=== PATIENT | male | born 1955 | race African-American/Black ===

== ENCOUNTER 2016-09-29 13:52 | Inpatient (IN) | payer OTHER ==
[~2016-09-29] VITALS: Ht 167.6 cm; Wt 87.6 kg
[2016-09-29] VITALS (7 sets, daily range): BP systolic 139–188; BP diastolic 70–126; PULSE 69–113; RESP 18–26; TEMP 97.5–98.1; O2SAT 96–99
[~2016-09-29 13:52] MED LIST: PRED20 PO; ROBA750T3 PO; Z.0.NO CURRENT MEDS
[2016-09-29] MEDS ORDERED: SODIUM CHLORIDE 0.9% FLUSH 10 ML FLUSH IVF PRN (14:15)
[2016-09-29] MEDS ORDERED: methylPREDNISolone SOD SUCC 125 MG/2 ML VIAL IVP ONE (14:15)
--- NOTE | 2016-09-29 14:20 | PD ---
HPI Chief Complaint: Respiratory Distress Time Seen by Provider: 14:09 Travel History International Travel<30 days: No Contact w/Intl Traveler<30days: No Traveled to known affect area: No History of Present Illness HPI 61-year-old male with history of smoking, presents to the ER 1 month history of coughing with grayish phlegm, shortness of breath intermittently, dyspnea on exertion. He denies any chest pains, fevers, or other symptoms. He states that he had quit smoking a week ago. Modifying Factors: None Associated Signs & Symptoms: Coughing, shortness of breath, dyspnea on exertion worsening in the past few days Risk Factors: History of smoking PFSH Past Medical History Hypertension: Yes Past Surgical History Genitourinary Surgery: Yes (SCROTAL CYST REMOVED) Social History Alcohol Use: Yes (BEER DAILY) Tobacco Use: Yes Allergies-Medications (Allergen,Severity, Reaction): Coded Allergies: Keflex (Verified Allergy, Severe, ITCHING, 06/30/11) Motrin (Verified Allergy, Severe, VOMITING, 06/30/11) Reported Meds & Prescriptions Reported Meds & Active Scripts Active Robaxin-750 (Methocarbamol) 750 Mg Tab 1 Tab PO QIDPRN FOR PAIN Deltasone (Prednisone) 20 Mg Tab 1 Tab PO DAILY Reported No Current Meds (Miscellaneous Medication) Misc Review of Systems Except as stated in HPI: all other systems reviewed are Neg Physical Exam Narrative GENERAL: Well-developed elderly after Haitian male patient currently in mild respiratory distress. Awake and oriented 3. SKIN: Focused skin assessment warm/dry. HEAD: Atraumatic. Normocephalic. EYES: Pupils equal and round. No scleral icterus. No injection or drainage. ENT: No nasal bleeding or discharge. Mucous membranes pink and moist. NECK: Trachea midline. No JVD. CARDIOVASCULAR: Regular rate and rhythm. No murmur appreciated. RESPIRATORY: No accessory muscle use. With wheezing throughout. Breath sounds equal bilaterally. GASTROINTESTINAL: Abdomen soft, non-tender, nondistended. Hepatic and splenic margins not palpable. MUSCULOSKELETAL: No obvious deformities. No clubbing. No cyanosis. No edema. NEUROLOGICAL: Awake and alert. No obvious cranial nerve deficits. Motor grossly within normal limits. Normal speech. PSYCHIATRIC: Appropriate mood and affect; insight and judgment normal. Data Data Last Documented VS Vital Signs Date Time Temp Pulse Resp B/P Pulse Ox O2 Delivery O2 Flow Rate FiO2 09/29/16 16:02 96 2 09/29/16 16:02 20 Nasal Cannula 09/29/16 13:57 98.1 113 188/126 Orders Complete Blood Count With Diff (09/29/16 14:09) Comprehensive Metabolic Panel (09/29/16 14:09) B-Type Natriuretic Peptide (09/29/16 14:09) Iv Access Insert/Monitor (09/29/16 14:09) Electrocardiogram (09/29/16 14:09) Ecg Monitoring (09/29/16 14:09) Oximetry (09/29/16 14:09) Oxygen Administration (09/29/16 14:09) Chest, Single Ap (09/29/16 14:09) Sodium Chloride 0.9% Flush (Ns Flush) (09/29/16 14:15) Methylprednisolone So Succ Inj (Solumedr (09/29/16 14:15) Albuterol-Ipratropium Neb (Duoneb Neb) (09/29/16 14:15) Furosemide Inj (Lasix Inj) (09/29/16 17:00) Labs Laboratory Tests Test 09/29/16 14:15 White Blood Count 10.1 TH/MM3 Red Blood Count 5.16 MIL/MM3 Hemoglobin 15.8 GM/DL Hematocrit 46.7 % Mean Corpuscular Volume 90.6 FL Mean Corpuscular Hemoglobin 30.6 PG Mean Corpuscular Hemoglobin 33.8 % Concent Red Cell Distribution Width 15.1 % Platelet Count 188 TH/MM3 Mean Platelet Volume 10.7 FL Neutrophils (%) (Auto) 59.4 % Lymphocytes (%) (Auto) 22.4 % Monocytes (%) (Auto) 5.2 % Eosinophils (%) (Auto) 11.9 % Basophils (%) (Auto) 1.1 % Neutrophils # (Auto) 6.0 TH/MM3 Lymphocytes # (Auto) 2.3 TH/MM3 Monocytes # (Auto) 0.5 TH/MM3 Eosinophils # (Auto) 1.2 TH/MM3 Basophils # (Auto) 0.1 TH/MM3 CBC Comment DIFF FINAL Differential Comment Sodium Level 140 MEQ/L Potassium Level 4.1 MEQ/L Chloride Level 107 MEQ/L Carbon Dioxide Level 24.3 MEQ/L Anion Gap 9 MEQ/L Blood Urea Nitrogen 11 MG/DL Creatinine 1.18 MG/DL Estimat Glomerular Filtration 76 ML/MIN Rate Random Glucose 120 MG/DL Calcium Level 9.7 MG/DL Total Bilirubin 1.3 MG/DL Aspartate Amino Transf 67 U/L (AST/SGOT) Alanine Aminotransferase 149 U/L (ALT/SGPT) Alkaline Phosphatase 89 U/L B-Type Natriuretic Peptide 865 PG/ML Total Protein 7.5 GM/DL Albumin 3.6 GM/DL MDM Medical Decision Making Medical Screen Exam Complete: Yes Emergency Medical Condition: Yes Medical Record Reviewed: Yes Interpretation(s) Laboratory Tests Test 09/29/16 14:15 Eosinophils (%) (Auto) 11.9 % (0.0-4.0) Eosinophils # (Auto) 1.2 TH/MM3 (0-0.4) Estimat Glomerular Filtration 76 ML/MIN (>89) Rate Random Glucose 120 MG/DL (74-106) Total Bilirubin 1.3 MG/DL (0.2-1.0) Aspartate Amino Transf 67 U/L (15-37) (AST/SGOT) Alanine Aminotransferase 149 U/L (12-78) (ALT/SGPT) B-Type Natriuretic Peptide 865 PG/ML (0-100) Last 24 hours Impressions Chest X-Ray 09/29/16 1409 Signed Impressions: Service Date/Time: Thursday, September 29, 2016 14:16 - CONCLUSION: 1. Cardiomegaly with trace positive fluid balance. Kwan Stone MD Differential Diagnosis Coughing, shortness of breath, dyspnea on exertionbronchitis versus COPD versus pneumonia Narrative Course Patient was initially given Solu-Medrol and DuoNeb's with improvement symptoms. His chest x-ray is concerning for underlying pulmonary edema and BNP is elevated as well. Lasix was also added to the medics. At this point, my plan would be to admit the patient for further evaluation and treatment considering he has had no history of either CHF or COPD in the past. Case has been discussed with Dr. Green for admission. Diagnosis Primary Impression: CHF (congestive heart failure) Additional Impression: Bronchitis Admitting Information Admitting Physician Requests: Admit Emma Byrd MD Sep 29, 2016 14:20
[2016-09-29] MEDS: RESP: ALBUTEROL 2.5 MG/IPRATROPIUM 0.5 MG NEB (SCH) INH (14:33)
[2016-09-29 14:38] LABS: BASOPHIL # 0.1 TH/MM3 (0-0.2); BASOPHIL % 1.1 % (0.0-2.0); EOSINOPHIL # 1.2 TH/MM3 (0-0.4); EOSINOPHIL % 11.9 % (0.0-4.0); HEMATOCRIT 46.7 % (39.0-51.0); HEMO FLAGS DIFF FINAL; LYMPH % 22.4 % (9.0-44.0); LYMPHOCYTE # 2.3 TH/MM3 (1.0-4.8); MEAN CELL VOLUME 90.6 FL (80.0-100.0); MEAN CORPUSCULAR HEMOGLOBIN 30.6 PG (27.0-34.0); MEAN CORPUSCULAR HGB CONC 33.8 % (32.0-36.0); MONO % 5.2 % (0.0-8.0); NEUT % 59.4 % (16.0-70.0); PLATELET COUNT 188 TH/MM3 (150-450); RED BLOOD COUNT 5.16 MIL/MM3 (4.50-5.90); RED CELL DISTRIBUTION WIDTH 15.1 % (11.6-17.2); WHITE BLOOD COUNT 10.1 TH/MM3 (4.0-11.0)
[2016-09-29 14:43] LABS: ALT (GPT) 149 U/L (12-78); ANION GAP 9 MEQ/L (5-15); AST (GOT) 67 U/L (15-37); BICARBONATE 24.3 MEQ/L (21.0-32.0); BLOOD UREA NITROGEN 11 MG/DL (7-18); CHLORIDE 107 MEQ/L (98-107); GLOMERULAR FILTRATION RATE 76 ML/MIN (>89); POTASSIUM 4.1 MEQ/L (3.5-5.1); SODIUM (NA) 140 MEQ/L (136-145)
[2016-09-29 14:45] LABS: ALKALINE PHOSPHATASE 89 U/L (45-117); TOTAL BILIRUBIN ADULT 1.3 MG/DL (0.2-1.0)
--- NOTE | 2016-09-29 15:28 | RADRPT ---
EXAM DATE/TIME: 09/29/2016 14:16 [facility] COMPARISON: No previous studies available for comparison. INDICATIONS : Shortness of breath. MEDICAL HISTORY : Hypertension. SURGICAL HISTORY : None. ENCOUNTER: Initial ACUITY: 2 months PAIN SCORE: 0/10 LOCATION: Bilateral chest FINDINGS: Cardiac silhouette is enlarged. Mild diffuse interstitial prominence. No significant focal pleural or parenchymal opacities. Bony thorax is intact. CONCLUSION: 1. Cardiomegaly with trace positive fluid balance. Kwan Stone MD on September 29, 2016 at 15:00 Board Certified Radiologist. This report was verified electronically.
[2016-09-29] MEDS ORDERED: FUROSEMIDE 40 MG/4 ML VIAL IV PUSH ONE (17:00)
[2016-09-29] MEDS ORDERED: ACETAMINOPHEN 325 MG TAB PO PRN (17:15)
[2016-09-29] MEDS ORDERED: NALOXONE HCL 0.4 MG/ML AMP IV PRN (17:15)
[2016-09-29] MEDS ORDERED: ONDANSETRON HCL 4 MG/2 ML VIAL IVP PRN (17:15)
[2016-09-29] MEDS ORDERED: RESP: ALBUTEROL 2.5 MG/IPRATROPIUM 0.5 MG NEB (PRN) NEB (17:15)
[2016-09-29] MEDS ORDERED: SODIUM CHLORIDE 0.9% FLUSH 10 ML FLUSH IV FLUSH PRN (17:15)
[2016-09-29] MEDS ORDERED: TEMAZEPAM 15 MG CAP PO PRN (17:15)
--- NOTE | 2016-09-29 17:48 | HHI.HP ---
[facility] Service [facility] Primary Care Physician [facility] Admission Diagnosis new onset CHF/COPD Diagnoses: (1) CHF (congestive heart failure) Chief Complaint: Worsening shortness of breath for past month Productive cough Travel History International Travel<30 Days: No Contact w/Intl Traveler <30 Da: No Traveled to Known Affected Are: No History of Present Illness Written by Ebonie Pedraza, acting as scribe for Dr. Green on 09/29/16 at 17:32. Mr. Hoover is a 61-year-old male patient with a known history of hypertension, tobacco abuse, cocaine use, and noncompliance who presented to the ED with complaints of worsening shortness of breath and productive cough x 1 month now. Patient states that his shortness of breath has been worsening over the past week with inability to walk no more than 20 feet without becoming short of breath and having to sit down. Patient [facility] with little to no improvement with continued use. He states he was adjusting a fan blade at home this am, became significantly short of breath, dizzy, diaphoretic and developed nausea and one bout of yellow emesis. Denies any chest pain at that time but did recognize his heart racing. Denies any recent lower leg edema. Patient states that over the past few days he has been waking up several times per night with orthopnea. Supposedly patient stopped smoking 1 week ago with a 20 year smoking history. States he has been diagnosed with hypertension but has not been compliant with medications for over a year now due to expense. Does admit to daily cocaine use, with last use last night. Patient also admits to daily alcohol use, up to 1 pint or liquor or 6 pack of alcohol per day. Last drink was three days ago, states he has not felt like drinking due to dyspnea. Patient is seen by the [facility] in the outpatient setting. He states he has not been compliant with prescribed medication for over 1 year now due to expense. Denies any recent fever, chills, chest pain, abdominal pain, diarrhea, hematochezia or dysuria. Review of Systems Constitutional: COMPLAINS OF: Dizziness Respiratory: COMPLAINS OF: Cough, Wheezing, Sputum production, Shortness of breath Cardiovascular: COMPLAINS OF: Dyspnea on Exertion, Orthopnea Gastrointestinal: COMPLAINS OF: Nausea, Vomiting Musculoskeletal: COMPLAINS OF: Joint pain Except as stated in HPI: all other systems reviewed are Neg Past Family Social History Past Medical History Hypertension Cocaine abuse Past Surgical History Scrotal cyst removal. Reported Medications Active Robaxin-750 (Methocarbamol) 750 Mg Tab 1 Tab PO QIDPRN FOR PAIN Deltasone (Prednisone) 20 Mg Tab 1 Tab PO DAILY Reported No Current Meds (Miscellaneous Medication) Misc Allergies: Coded Allergies: Keflex (Verified Allergy, Severe, ITCHING, 06/30/11) Motrin (Verified Allergy, Severe, VOMITING, 06/30/11) Active Ordered Medications Current Medications Medications (Trade) Dose Ordered Sig/Yaneth Route Start Time Stop Time Status Last Admin (NS Flush) 2 ml UNSCH PRN IVF 09/29/16 14:15 (NS Flush) 2 ml UNSCH PRN IV FLUSH 09/29/16 17:15 (NS Flush) 2 ml BID IV FLUSH 09/29/16 21:00 (Lasix Inj) 40 mg BID@09,18 IVP 09/29/16 18:00 (KCl) 20 meq BID PO 09/29/16 21:00 (Tylenol) 650 mg Q4H PRN PO 09/29/16 17:15 (Zofran Inj) 4 mg Q6H PRN IVP 09/29/16 17:15 (Restoril) 15 mg HS PRN PO 09/29/16 17:15 (Narcan Inj) 0.4 mg UNSCH PRN IV 09/29/16 17:15 (Vasotec Inj) 1.25 mg Q6H PRN IV PUSH 09/29/16 17:15 (Coreg) 3.125 mg Q12HR PO 09/29/16 21:00 Family History Maternal medical history significant for diabetes. Dad of DE at age 72. Denies any significant family medical history of cancer. Social History Patient admits to smoking over forty years half pack per day. Does admit to daily alcohol use, states he can easily drink a plan of alcohol in one night or a six pack of beer. Patient states last beer was one week ago, states he has not been feeling well. Does admit to daily cocaine use, last use was last night. Physical Exam Vital Signs Vital Signs Date Time Temp Pulse Resp B/P Pulse Ox O2 Delivery O2 Flow Rate FiO2 09/29/16 17:43 69 20 168/105 98 Nasal Cannula 2 09/29/16 16:02 96 2 09/29/16 16:02 20 96 Nasal Cannula 2 09/29/16 14:36 98 Nasal Cannula 2.00 09/29/16 13:57 98.1 113 26 188/126 96 Physical Exam GENERAL: Well-nourished, well-developed patient, sitting in bed on oxygen, short of breath with SKIN: No rashes, ecchymoses or lesions. Warm and dry. HEENT: Atraumatic. Normocephalic. Pupils equal round and reactive. Extraocular motions intact. No scleral icterus. No injection or drainage. Nose without bleeding. Airway patent. NECK: Trachea midline. No JVD or lymphadenopathy. Supple. CARDIOVASCULAR: Tachycardia.No murmur appreciated. RESPIRATORY: Right posterior lower lobe expiratory wheeze. Breath sounds equal bilaterally. No wheezes, rales, or rhonchi. GASTROINTESTINAL: Abdomen soft, non-tender, nondistended. No guarding. MUSCULOSKELETAL: Extremities without clubbing, cyanosis, or edema. No joint tenderness, effusion, or edema noted. NEUROLOGICAL: Awake and alert. Cranial nerves II through XII intact. Motor and sensory grossly within normal limits. Five out of 5 muscle strength in all muscle groups. Normal speech. Laboratory Laboratory Tests Test 09/29/16 14:15 White Blood Count 10.1 Red Blood Count 5.16 Hemoglobin 15.8 Hematocrit 46.7 Mean Corpuscular Volume 90.6 Mean Corpuscular Hemoglobin 30.6 Mean Corpuscular Hemoglobin 33.8 Concent Red Cell Distribution Width 15.1 Platelet Count 188 Mean Platelet Volume 10.7 Neutrophils (%) (Auto) 59.4 Lymphocytes (%) (Auto) 22.4 Monocytes (%) (Auto) 5.2 Eosinophils (%) (Auto) 11.9 Basophils (%) (Auto) 1.1 Neutrophils # (Auto) 6.0 Lymphocytes # (Auto) 2.3 Monocytes # (Auto) 0.5 Eosinophils # (Auto) 1.2 Basophils # (Auto) 0.1 CBC Comment DIFF FINAL Differential Comment Sodium Level 140 Potassium Level 4.1 Chloride Level 107 Carbon Dioxide Level 24.3 Anion Gap 9 Blood Urea Nitrogen 11 Creatinine 1.18 Estimat Glomerular Filtration 76 Rate Random Glucose 120 Calcium Level 9.7 Total Bilirubin 1.3 Aspartate Amino Transf 67 (AST/SGOT) Alanine Aminotransferase 149 (ALT/SGPT) Alkaline Phosphatase 89 B-Type Natriuretic Peptide 865 Total Protein 7.5 Albumin 3.6 Result Diagram: 09/29/16 1415 09/29/16 1415 Imaging Last Impressions Chest X-Ray 09/29/16 1409 Signed Impressions: Service Date/Time: Tuesday, September 29, 2016 14:16 - CONCLUSION: 1. Cardiomegaly with trace positive fluid balance. Kwan Stone MD Assessment and Plan Problem List: (1) New onset of congestive heart failure ICD Code: I50.9 Status: Acute (2) Essential hypertension, malignant ICD Code: I10 Status: Acute (3) Alcohol abuse ICD Code: F10.10 Status: Acute (4) Transaminitis ICD Code: R74.0 Status: Acute Assessment and Plan Mr. Hoover is a 61-year-old male patient with a known history of hypertension, tobacco abuse, cocaine use, and noncompliance who presented to the ED with complaints of worsening shortness of breath and productive cough x 1 month now. Congestive heart failure, acute vs chronic: No previous history of CHF or prior ECHO. - Given Lasix 40 mg IV x 1 in ED. Start on Lasix 40 mg PO BID. - Monitor for hypokalemia, start on KCL 20 meq PO BID. - Obtain 2-D ECHO, Lipid profile. Follow. - BNP on presentation, 865. - Serial troponin. Pending. Trend. - Chest x-ray reviewed, cardiomegaly with trace positive fluid balance. - EKG reviewed, sinus tachycardia with left atrial enlargement. -Consult Cardiology Uncontrolled hypertension, chronic - Patient noncompliant with prescribed outpatient hypertensives. - Start Coreg 3.125 mg PO Q12hr. - Vasotec 1.25 mg IV q6h PRN with parameters. - Continuous cardiac telemetry. Monitor. Elevated LFTs: Likely chronic due to daily alcohol use - AST 67 and ALT 149 on presentation. -Check Hepatitis profile - CIWA protocol started. Monitor withdrawal symptoms. Bronchitis: Likely chronic due to smoking - No fever, likely viral in nature. - Solumedrol 125 mg IV x 1 in ED. - Duonebs PRN wheezing. DVT Prophylaxis: SCDs/TEDs. This note was transcribed by bel Pedraza. I, Dr. Rainer Green personally performed the history, physical exam, and medical decision making; and confirmed the accuracy of the information in the transcribed note. Authenticated by Dr. Rainer Green on 09/29/16 at 17:32. Code Status Full code Discussed Condition With Patient, ED physician Ebonie Pedraza Sep 29, 2016 17:48 Rainer Green MD Sep 29, 2016 17:49
[2016-09-29] MEDS: FUROSEMIDE 40 MG/4 ML VIAL IVP SCH (18:00)
[2016-09-29] MEDS ORDERED: LORazepam 2 MG TAB PO PRN (18:45)
[2016-09-29] MEDS ORDERED: LORazepam 1 MG TAB PO PRN (18:45)
[2016-09-29] MEDS ORDERED: LORazepam 2 MG/ML VIAL IV PUSH PRN ×4 (18:45)
[2016-09-29] MEDS ORDERED: FLUMAZENIL 0.5 MG/5 ML VIAL IV PUSH PRN (18:45)
[2016-09-29] MEDS: ENALAPRILAT 1.25 MG/ML VIAL IV PUSH PRN (18:46)
[2016-09-29] MEDS ORDERED: LISI40TA PO (20:47)
[2016-09-29] MEDS ORDERED: SERT-132 PO (20:47)
[2016-09-29] MEDS ORDERED: TRAZ50TA12 PO (20:47)
[2016-09-29] MEDS: SODIUM CHLORIDE 0.9% FLUSH 10 ML FLUSH IV FLUSH SCH (22:00)
[2016-09-29] MEDS: POTASSIUM CHLORIDE 20 MEQ CONTROLLED RELEASE TAB PO SCH (22:00)
[2016-09-29] MEDS: ENOXAPARIN SODIUM 80 MG/0.8 ML SYRINGE SQ SCH (22:01)
[2016-09-29] MEDS: CARVEDILOL 3.125 MG TAB PO SCH (22:01)
[2016-09-29 22:17] LABS: HDL CHOLESTEROL 41.5 MG/DL (40.0-60.0); LDL CHOLESTEROL 177 MG/DL (0-99)
[2016-09-30] VITALS (9 sets, daily range): BP systolic 123–145; BP diastolic 76–103; PULSE 69–100; RESP 18–20; TEMP 97.6–99; O2SAT 95–99
[2016-09-30] MEDS ORDERED: ASPIRIN 325 MG TAB PO ONE (00:45)
[2016-09-30] MEDS: FOLIC ACID 1 MG TAB PO SCH (08:32)
[2016-09-30] MEDS: FUROSEMIDE 40 MG/4 ML VIAL IVP SCH (08:32)
[2016-09-30] MEDS: CARVEDILOL 3.125 MG TAB PO SCH (08:32)
[2016-09-30] MEDS: POTASSIUM CHLORIDE 20 MEQ CONTROLLED RELEASE TAB PO SCH ×2 (08:33→22:28)
[2016-09-30] MEDS: MULTIVITAMINS/MINERALS THERAPEUTIC TAB PO SCH (08:33)
[2016-09-30] MEDS: THIAMINE HCL 100 MG TAB PO SCH (08:34)
[2016-09-30] MEDS: SODIUM CHLORIDE 0.9% FLUSH 10 ML FLUSH IV FLUSH SCH ×2 (08:34→21:00)
[2016-09-30 09:32] LABS: BICARBONATE 21.1 MEQ/L (21.0-32.0); POTASSIUM 4.1 MEQ/L (3.5-5.1)
--- NOTE | 2016-09-30 09:53 | HHI.PR ---
Subjective Remarks Follow-up for shortness of breath and likely new onset CHF. The patient reports his shortness of breath is significantly improved overnight. He reports good urine output overnight. He still has some orthopnea. He states that shortness of breath is not at rest but when he exerts himself. He continues to complain of chronic dry coughing. Takes lisinopril. No fevers or chills. The patient reports that he uses cocaine and Lortab off the street for chronic shoulder and knee pain. He has seen orthopedics at the [place] for these symptoms in the past. He states that his PCP at the [place] thinks that he is an addict. He verbalizes understanding that these substances specifically cocaine are adverse to his health, but he intends to keep using them because they control his pain. Objective Vitals Vital Signs Date Time Temp Pulse Resp B/P Pulse Ox O2 Delivery O2 Flow Rate FiO2 09/30/16 08:30 98 Nasal Cannula 2.00 09/30/16 07:14 97.6 84 20 133/77 99 09/30/16 04:24 98.4 69 18 140/79 97 09/30/16 01:17 98.8 88 18 131/76 98 09/29/16 23:00 95 09/29/16 21:48 97.5 94 20 139/79 96 09/29/16 19:11 109 18 150/70 99 Nasal Cannula 2 09/29/16 18:50 105 22 150/81 96 2 09/29/16 17:43 69 20 168/105 98 Nasal Cannula 2 09/29/16 16:02 96 2 09/29/16 16:02 20 96 Nasal Cannula 2 09/29/16 14:36 98 Nasal Cannula 2.00 09/29/16 13:57 98.1 113 26 188/126 96 I/O 09/29/16 09/29/16 09/29/16 09/30/16 09/30/16 09/30/16 07:00 15:00 23:00 07:00 15:00 23:00 Intake Total 500 ml 500 ml Output Total 550 ml Balance 500 ml -50 ml Intake Oral 500 ml 500 ml Output Urine Total 550 ml Result Diagram: 09/29/16 1415 09/29/16 1415 Imaging Last Impressions Chest X-Ray 09/29/16 1409 Signed Impressions: Service Date/Time: Thursday, September 29, 2016 14:16 - CONCLUSION: 1. Cardiomegaly with trace positive fluid balance. Kwan Stone MD Objective Remarks GENERAL: Well-developed well-nourished. In no acute distress. SKIN: Warm and dry. No lesions noted. HEENT: Normocephalic. Pupils equal and round. Mucous membranes pink and moist. CARDIOVASCULAR: Regular rate and rhythm. No murmur appreciated. RESPIRATORY: No accessory muscle use. Clear to auscultation. Breath sounds equal bilaterally. GASTROINTESTINAL: Abdomen soft, non-tender, nondistended. Bowel sounds x4. MUSCULOSKELETAL: No obvious deformities. No clubbing or cyanosis. Trace edema. NEUROLOGICAL: Awake and alert. No focal neurological deficits. Moves upper and lower extremities spontaneously. Normal speech. PSYCHIATRIC: Slightly anxious mood and affect; insight and judgment normal. A/P Problem List: (1) New onset of congestive heart failure ICD Code: I50.9 Status: Acute (2) Essential hypertension, malignant ICD Code: I10 Status: Acute (3) Alcohol abuse ICD Code: F10.10 Status: Acute (4) Transaminitis ICD Code: R74.0 Status: Acute Assessment and Plan Mr. Hoover is a 61-year-old male patient with a known history of hypertension, tobacco abuse, cocaine use, and noncompliance who presented to the ED with complaints of worsening shortness of breath and productive cough x 1 month now. Suspected congestive heart failure with acute exacerbation: No previous history of CHF or prior ECHO. Presented with CHOPRA, orthopnea, lower extremity edema. Reviewed: BNP 865. Chest x-ray with cardiomegaly and edema. Lipid profile with high LDL, transaminitis. Troponins as below. - Diuresing with IV Lasix. Monitor intake and output. - Obtain 2-D ECHO - Cardiology consulted. - Hold off on statin for now with transaminitis. Uncontrolled hypertension, chronic - Patient noncompliant with prescribed outpatient hypertensives. - Started Coreg 3.125 mg PO Q12hr, caution with cocaine use. - Change lisinopril to losartan with chronic cough - Vasotec 1.25 mg IV q6h PRN with parameters. - Continuous cardiac telemetry. Monitor. Elevated troponins: No specific chest pain. Possibly secondary to CHF or cocaine use. R/O NSTEMI. EKG reviewed with sinus tachycardia, LVH, nonspecific T wave changes. -Trending cardiac enzymes -Cardiology consulted -On full dose Lovenox for now -Aspirin -Check UDS Transaminitis: Likely chronic due to daily alcohol use Reviewed: Bilirubin 1.3, AST 67 and ALT 149. - Check Hepatitis profile Alcohol abuse: Chronic. - CIWA protocol with thiamine replacement. - Monitor withdrawal symptoms. Chronic cough: Chest x-ray as above. Possibly chronic bronchitis. Cough no longer productive with diuresis, possible cardiac asthma. Afebrile with no leukocytosis. Likely chronic due to smoking. Received Solu-Medrol IV in the ED. - Duonebs PRN wheezing. - Supplemental O2 as needed - Change lisinopril to losartan. Depression: Chronic, stable. -Continue home sertraline and trazodone. Chronic knee and shoulder pain: Patient agrees that he needs long-term management for this and agrees that he does not need any acute care. -Recommend continued orthopedic follow-up as outpatient as well as pain management Polysubstance abuse: With alcohol, tobacco, and cocaine. -Counseled extensively on cessation, although patient expresses no desire to quit DVT Prophylaxis: SCDs/TEDs. GI prophylaxis: Pepcid Discharge Planning With new onset CHF and possible NSTEMI, will admit to inpatient. To Gleason Sep 30, 2016 09:53
[2016-09-30 10:24] LABS: AMPHETAMINE, URINE NEG (NEG); BARBITURATES, URINE NEG (NEG); COCAINE, URINE POS (NEG)
[2016-09-30] MEDS: FAMOTIDINE 20 MG TAB PO SCH ×2 (10:38→22:27)
[2016-09-30] MEDS: LOSARTAN 25 MG TAB PO SCH (10:38)
[2016-09-30] MEDS: ENOXAPARIN SODIUM 80 MG/0.8 ML SYRINGE SQ SCH ×2 (10:39→22:27)
--- NOTE | 2016-09-30 11:12 | ECHRPT ---
Indication: Syncope and collapse CONCLUSIONS Mildly dilated left ventricle. Wall thickness is measured at the upper limits of normal. The left ve ntricular systolic function is severely reduced with an estimated ejection fraction in the range of 25-30%. Th ere is global left ventricular dysfunction. Mild thickening of the mitral valve leaflets. Mild mitral valve regurgitation. There is trace tricuspid valve regurgitation. Pulmonary arterial systolic pressure could not be est imated due to an insufficient tricuspid valve regurgitation doppler jet for measurement. BP: 96 / 76 HR: 70 Rhythm: Other MEASUREMENTS (Male / Female) Normal Values Technical Quality:Good 2D ECHO LV Diastolic Diameter PLAX 6.2 cm 4.2 - 5.9 / 3.9 - 5.3 cm LV Systolic Diameter PLAX 5.4 cm IVS Diastolic Thickness 0.9 cm 0.6 - 1.0 / 0.6 - 0.9 cm LVPW Diastolic Thickness 0.9 cm 0.6 - 1.0 / 0.6 - 0.9 cm LV Relative Wall Thickness 0.3 RV Internal Dim ED PLAX 2.0 cm LVOT Diameter 2.0 cm M-MODE Aortic Root Diameter MM 3.1 cm LA Systolic Diameter MM 3.6 cm LA Ao Ratio MM 1.2 AV Cusp Separation MM 1.9 cm DOPPLER AV Peak Velocity 164.0 cm/s AV Peak Gradient 10.8 mmHg LVOT Peak Velocity 115.0 cm/s LVOT Peak Gradient 5.3 mmHg AV Area Cont Eq pk 2.2 cm MR Peak Velocity 507.0 cm/s MR Peak Gradient 102.8 mmHg LV E' Lateral Velocity 5.4 cm/s LV E' Septal Velocity 4.9 cm/s TR Peak Velocity 197.3 cm/s TR Peak Gradient 15.6 mmHg PV Peak Velocity 99.1 cm/s PV Peak Gradient 3.9 mmHg FINDINGS Left Ventricle Mildly dilated left ventricle. Wall thickness is measured at the upper limits of normal. The left ve ntricular systolic function is severely reduced with an estimated ejection fraction in the range of 25-30%. Th ere is global left ventricular dysfunction. Right Atrium The right atrial size is upper limits of normal. Mitral Valve Mild thickening of the mitral valve leaflets. Mild mitral valve regurgitation. No mitral valve steno sis. Tricuspid Valve There is trace tricuspid valve regurgitation. Pulmonary arterial systolic pressure could not be est imated due to an insufficient tricuspid valve regurgitation doppler jet for measurement. Rj Leon MD, FACC (Electronically Signed) Final Date:30 September 2016 11:11
--- NOTE | 2016-09-30 12:16 | MB ---
cc: ERIN REDDY DATE OF CONSULTATION: 09/30/2016 REASON FOR CONSULTATION: Mr. Hoover 61-year-old white male with a history of hypertension and smoking, cocaine use and noncompliance with medical care. He presented with progressive history of shortness of breath and cough for the last month. He has had shortness of breath on minimal exertion. [facility] with no improvement of his symptoms. He also has had dizziness, diaphoresis, nausea and vomiting. He has not had any chest pain. He states stopped smoking 1 week ago. He uses cocaine daily. He also has history of heavy drinking. He was prescribed medications over 1 year ago and he has not been compliant. PAST MEDICAL HISTORY Positive for hypertension. Cocaine use History of scrotal cyst removal. MEDICATIONS 1. Robaxin. 2. Deltasone. ALLERGIES KEFLEX MOTRIN SOCIAL HISTORY The patient quit smoking 1 week ago. He drinks alcohol heavily. He uses cocaine daily. FAMILY HISTORY: Family history is positive for heart disease in his father. REVIEW OF SYSTEMS The review of systems is otherwise negative. PHYSICAL EXAMINATION VITAL SIGNS: Blood pressure was 133/77, pulse 84 and regular. HEAD, EYES, EARS, NOSE, AND THROAT: Negative. No bruits. LUNGS: Few bibasilar crackles. HEART: Regular with no murmur with 1/6 systolic murmur. No gallop or rub. No bruits. EXTREMITIES: Extremities with no edema. 2+ Pulses. NEUROLOGICALLY: He is grossly nonfocal. EKG was reviewed and showed sinus tachycardia, short ND of the left atrial enlargement, left ventricle hypertrophy with secondary ST-T changes. LABORATORY DATA Hemoglobin 15.8, potassium 4.1, creatinine 3, troponin 0.81, 0.75 and 0.65, CK 184 and 154, LDL 137, HDL 42. RADIOLOGIC: Echocardiogram showed severe left ventricular dysfunction with an ejection fraction of 25-30% severe global hypokinesis. DIAGNOSIS 1. Acute congestive heart failure, systolic 2. Cardiomyopathy with severe LV systolic dysfunction. 3. Hypertensive. 4. Cocaine abuse. 5. Alcohol abuse. 6. Noncompliance with medical care. PHYSICIAN: Mr. Hoover will continue his therapy for congestive heart failure including IV diuresis. He will continue therapy with beta melchor and ARB. We will obtain an adenosine myocardial perfusion study tomorrow to evaluate for significant ischemia. His cardiomyopathy may be related to habitual cocaine use and also heavy alcohol use. This was discussed with the patient in detail. I will follow him for cardiology during his hospitalization. He was advised to follow up with the [facility] food service attendant after discharge. MD LOCO Liang/biju /11:43 AM /12:06 PM FAUSTINO
--- NOTE | 2016-09-30 14:51 | EKG ---
Date Performed: 09/29/2016 Time Performed: 20:25:13 PTAGE: 61 years EKG: SINUS TACHYCARDIA LEFT ATRIAL ENLARGEMENT LEFT VENTRICULAR HYPERTROPHY AND ST-T CHANGE ABNO RMAL ECG Compared to prior tracing no significant change PREVIOUS TRACING : 09/29/2016 14.27 DOCTOR: Chas Juarez Interpretating Date/Time 09/30/2016 14:50:36
--- NOTE | 2016-09-30 14:51 | EKG ---
Date Performed: 09/29/2016 Time Performed: 14:27:59 PTAGE: 61 years EKG: SINUS TACHYCARDIA WITH SHORT DE INTERVAL LEFT ATRIAL ENLARGEMENT LEFT VENTRICULAR HYPERTROP HY AND ST-T CHANGE ABNORMAL ECG Compared to PREVIOUS TRACING , the sinus rate has increased and T-wave changes are consistent with LV H. PREVIOUS TRACING 06/30/2011 14.01.48 DOCTOR: Chas Juarez Interpretating Date/Time 09/30/2016 14:50:27
--- NOTE | 2016-09-30 14:51 | EKG ---
Date Performed: 09/30/2016 Time Performed: 00:09:04 PTAGE: 61 years EKG: Sinus rhythm LEFT ATRIAL ENLARGEMENT LEFT VENTRICULAR HYPERTROPHY AND ST-T CHANGE ABNORMAL ECG Compared to PREVIOUS TRACING , the sinus rate has slowed. PREVIOUS TRACIN09/29/2016 20.25 DOCTOR: Chas Juarez Interpretating Date/Time 09/30/2016 14:50:49
[2016-09-30] MEDS: ENALAPRILAT 1.25 MG/ML VIAL IV PUSH PRN (17:58)
[2016-09-30] MEDS: FUROSEMIDE 20 MG/2 ML VIAL IV PUSH SCH (17:59)
[2016-09-30] MEDS: traZODone HCL 100 MG TAB PO SCH (22:27)
[2016-09-30] MEDS: CARVEDILOL 6.25 MG TAB PO SCH (22:27)
[2016-10-01] VITALS (8 sets, daily range): BP systolic 112–154; BP diastolic 71–97; PULSE 84–99; RESP 20; TEMP 97.9–99.1; O2SAT 94–97
[2016-10-01] MEDS: CARVEDILOL 6.25 MG TAB PO SCH ×2 (08:49→20:56)
[2016-10-01] MEDS: LOSARTAN 25 MG TAB PO SCH (08:49)
[2016-10-01] MEDS: FOLIC ACID 1 MG TAB PO SCH (08:50)
[2016-10-01] MEDS: MULTIVITAMINS/MINERALS THERAPEUTIC TAB PO SCH (08:50)
[2016-10-01] MEDS: POTASSIUM CHLORIDE 20 MEQ CONTROLLED RELEASE TAB PO SCH ×2 (08:51→20:56)
[2016-10-01] MEDS: SERTRALINE HCL 50 MG TAB PO SCH (08:51)
[2016-10-01] MEDS: SODIUM CHLORIDE 0.9% FLUSH 10 ML FLUSH IV FLUSH SCH ×2 (08:51→20:56)
[2016-10-01] MEDS: FUROSEMIDE 20 MG/2 ML VIAL IV PUSH SCH ×2 (08:51→17:41)
[2016-10-01] MEDS: ASPIRIN 81 MG CHEW TAB CHEW SCH (08:51)
[2016-10-01] MEDS: FAMOTIDINE 20 MG TAB PO SCH ×2 (08:51→20:56)
[2016-10-01] MEDS: THIAMINE HCL 100 MG TAB PO SCH (08:52)
[2016-10-01] MEDS: ENOXAPARIN SODIUM 80 MG/0.8 ML SYRINGE SQ SCH ×2 (08:53→20:56)
[2016-10-01] MEDS ORDERED: REGADENOSON INJ 0.4 MG/5 ML SYR ONE (09:39)
--- NOTE | 2016-10-01 11:17 | HHI.PR ---
Subjective Remarks This is a pleasant 61 y/o Male with Shortness of breath, new onset of CHF, dry cough, The patient reports that he uses cocaine and Lortab off the street for chronic shoulder and knee pain. He has [facility] in the past. He states that his PCP at the [facility] thinks that he is an addict. He verbalizes understanding that these substances specifically cocaine are adverse to his health, but he intends to keep using them because they control his pain. 10/01: Seen in his bedroom in the presence of his and Daughter stable, Cardiology following. No nausea, vomit or diarrhea eating his Lunch Objective Vital Signs Date Time Temp Pulse Resp B/P Pulse Ox O2 Delivery O2 Flow Rate FiO2 10/01/16 08:00 97.9 93 20 112/78 97 10/01/16 07:56 96 Nasal Cannula 1.00 10/01/16 04:00 Nasal Cannula 2.00 10/01/16 04:00 98.0 97 20 126/90 96 10/01/16 00:00 Nasal Cannula 2.00 10/01/16 00:00 98.3 89 20 124/71 94 09/30/16 21:11 Room Air 09/30/16 20:08 93 09/30/16 20:08 98.1 95 19 130/80 95 09/30/16 17:30 Nasal Cannula 2.00 09/30/16 17:00 97.8 100 18 145/103 97 09/30/16 15:08 97.8 88 19 127/80 99 09/30/16 11:43 99.0 89 18 123/77 97 09/30/16 11:34 88 I/O 09/30/16 09/30/16 09/30/16 10/01/16 10/01/16 10/01/16 07:00 15:00 23:00 07:00 15:00 23:00 Intake Total 500 ml 240 ml Output Total 550 ml 340 ml 200 ml Balance -50 ml -100 ml -200 ml Intake Oral 500 ml 240 ml Output Urine Total 550 ml 340 ml 200 ml # Bowel Movements 1 0 Result Diagram: 09/29/16 1415 09/30/16 0826 Imaging Last Impressions Chest X-Ray 09/29/16 1409 Signed Impressions: Service Date/Time: Thursday, September 29, 2016 14:16 - CONCLUSION: 1. Cardiomegaly with trace positive fluid balance. Kwan Stone MD Procedures No procedures. Other Results Laboratory Tests Test 09/29/16 09/29/16 09/30/16 09/30/16 14:15 17:40 00:02 08:26 White Blood Count 10.1 TH/MM3 Red Blood Count 5.16 MIL/MM3 Hemoglobin 15.8 GM/DL Hematocrit 46.7 % Mean Corpuscular Volume 90.6 FL Mean Corpuscular Hemoglobin 30.6 PG Mean Corpuscular Hemoglobin 33.8 % Concent Red Cell Distribution Width 15.1 % Platelet Count 188 TH/MM3 Mean Platelet Volume 10.7 FL Neutrophils (%) (Auto) 59.4 % Lymphocytes (%) (Auto) 22.4 % Monocytes (%) (Auto) 5.2 % Eosinophils (%) (Auto) 11.9 % Basophils (%) (Auto) 1.1 % Neutrophils # (Auto) 6.0 TH/MM3 Lymphocytes # (Auto) 2.3 TH/MM3 Monocytes # (Auto) 0.5 TH/MM3 Eosinophils # (Auto) 1.2 TH/MM3 Basophils # (Auto) 0.1 TH/MM3 CBC Comment DIFF FINAL Differential Comment Total Bilirubin 1.3 MG/DL Aspartate Amino Transf 67 U/L (AST/SGOT) Alanine Aminotransferase 149 U/L (ALT/SGPT) Alkaline Phosphatase 89 U/L B-Type Natriuretic Peptide 865 PG/ML Total Protein 7.5 GM/DL Albumin 3.6 GM/DL Hemoglobin A1c 6.2 % Triglycerides Level 115 MG/DL Cholesterol Level 241 MG/DL LDL Cholesterol 177 MG/DL HDL Cholesterol 41.5 MG/DL Cholesterol/HDL Ratio 5.80 RATIO Hepatitis A IgM Antibody NEGATIVE Hepatitis B Surface Antigen NEGATIVE Hepatitis B Core IgM Antibody NEGATIVE Hepatitis C Antibody NEGATIVE Total Creatine Kinase 154 U/L Sodium Level 140 MEQ/L Potassium Level 4.1 MEQ/L Chloride Level 108 MEQ/L Carbon Dioxide Level 21.1 MEQ/L Anion Gap 11 MEQ/L Blood Urea Nitrogen 20 MG/DL Creatinine 1.31 MG/DL Estimat Glomerular Filtration 67 ML/MIN Rate Random Glucose 120 MG/DL Calcium Level 9.8 MG/DL Troponin I 0.65 NG/ML Test 09/30/16 10:00 Urine Opiates Screen NEG Urine Barbiturates Screen NEG Urine Amphetamines Screen NEG Urine Benzodiazepines Screen NEG Urine Cocaine Screen POS Urine Cannabinoids Screen NEG Objective Remarks GENERAL: Well-developed well-nourished. In no acute distress. SKIN: Warm and dry. No lesions noted. HEENT: Normocephalic. Pupils equal and round. Mucous membranes pink and moist. CARDIOVASCULAR: Regular rate and rhythm. No murmur appreciated. RESPIRATORY: No accessory muscle use. Clear to auscultation. Breath sounds equal bilaterally. GASTROINTESTINAL: Abdomen soft, non-tender, nondistended. Bowel sounds x4. MUSCULOSKELETAL: No obvious deformities. No clubbing or cyanosis. Trace edema. NEUROLOGICAL: Awake and alert. No focal neurological deficits. Moves upper and lower extremities spontaneously. Normal speech. PSYCHIATRIC: Slightly anxious mood and affect; insight and judgment normal. Medications and IVs Current Medications Medications (Trade) Dose Ordered Sig/Yaneth Route Start Time Stop Time Status Last Admin (NS Flush) 2 ml UNSCH PRN IVF 09/29/16 14:15 (NS Flush) 2 ml UNSCH PRN IV FLUSH 09/29/16 17:15 (NS Flush) 2 ml BID IV FLUSH 09/29/16 21:00 10/01/16 08:51 (KCl) 20 meq BID PO 09/29/16 21:00 10/01/16 08:51 (Tylenol) 650 mg Q4H PRN PO 09/29/16 17:15 (Zofran Inj) 4 mg Q6H PRN IVP 09/29/16 17:15 (Restoril) 15 mg HS PRN PO 09/29/16 17:15 (Narcan Inj) 0.4 mg UNSCH PRN IV 09/29/16 17:15 (Vasotec Inj) 1.25 mg Q6H PRN IV PUSH 09/29/16 17:15 09/30/16 17:58 (Folate) 1 mg DAILY PO 09/30/16 09:00 10/05/16 08:59 10/01/16 08:50 (Vitamin B1) 100 mg DAILY PO 09/30/16 09:00 10/01/16 08:52 (Theragran M Tab) 1 tab DAILY PO 09/30/16 09:00 10/05/16 08:59 10/01/16 08:50 (Romazicon Inj) 0.2 mg Q1M PRN IV PUSH 09/29/16 18:45 (Ativan) 1 mg Q4H PRN PO 09/29/16 18:45 (Ativan Inj) 1 mg Q4H PRN IV PUSH 09/29/16 18:45 (Ativan) 2 mg Q2H PRN PO 09/29/16 18:45 (Ativan Inj) 2 mg Q2H PRN IV PUSH 09/29/16 18:45 (Ativan Inj) 2 mg Q1H PRN IV PUSH 09/29/16 18:45 (Ativan Inj) 2 mg Q15M PRN IV PUSH 09/29/16 18:45 (Lovenox Inj) 80 mg Q12H SQ 09/29/16 21:45 10/01/16 08:53 (Pepcid) 20 mg BID PO 09/30/16 09:00 10/01/16 08:51 (Cozaar) 25 mg DAILY PO 09/30/16 09:45 10/01/16 08:49 (Zoloft) 50 mg DAILY PO 10/01/16 09:00 10/01/16 08:51 (Desyrel) 100 mg HS PO 09/30/16 21:00 09/30/16 22:27 (Aspirin Chew) 81 mg DAILY CHEW 10/01/16 09:00 10/01/16 08:51 (Lasix Inj) 20 mg BID@09,18 IV PUSH 09/30/16 18:00 10/01/16 08:51 (Coreg) 6.25 mg Q12HR PO 09/30/16 21:00 10/01/16 08:49 A/P Assessment and Plan Mr. Hoover is a 61-year-old male patient with a known history of hypertension, tobacco abuse, cocaine use, and noncompliance who presented to the ED with complaints of worsening shortness of breath and productive cough x 1 month now. New onset of Congestive Heart failure BNP 865 on admission, CXR Cardiomegaly and Edema, on Diuretics, Echocardiogram, he has Cardiomyopathy, Hypertension, Statins held due to Transaminitis, Cardiology following recommended BB and ARBs, Echocardiogram EF 25-30% with global left ventricular dysfunction, Stress test Dilated Cardiomyopathy, low inferior wall infarct. EF 17%. Cardiology following. Non compliance with medical health. Hypertension better control. - Patient noncompliant with prescribed outpatient hypertensives. - Started Coreg 3.125 mg PO Q12hr, caution with cocaine use. - Change lisinopril to losartan with chronic cough - Vasotec 1.25 mg IV q6h PRN with parameters. - Continuous cardiac telemetry. Monitor. Elevated troponins: No specific chest pain. Possibly secondary to CHF or cocaine use. R/O NSTEMI. EKG reviewed with sinus tachycardia, LVH, nonspecific T wave changes. -Trending cardiac enzymes -Cardiology consulted -On full dose Lovenox for now -Aspirin -Check UDS Transaminitis: Likely chronic due to daily alcohol use Reviewed: Bilirubin 1.3, AST 67 and ALT 149. - Check Hepatitis profile Alcohol abuse: Chronic. - CIWA protocol with thiamine replacement. - Monitor withdrawal symptoms. Chronic cough: Chest x-ray as above. Possibly chronic bronchitis. Cough no longer productive with diuresis, possible cardiac asthma. Afebrile with no leukocytosis. Likely chronic due to smoking. Received Solu-Medrol IV in the ED. - Duonebs PRN wheezing. - Supplemental O2 as needed - Change lisinopril to losartan. Depression: Chronic, stable. -Continue home sertraline and trazodone. Chronic knee and shoulder pain: Patient agrees that he needs long-term management for this and agrees that he does not need any acute care. -Recommend continued orthopedic follow-up as outpatient as well as pain management Polysubstance abuse: With alcohol, tobacco, and cocaine. -Counseled extensively on cessation, although patient expresses no desire to quit DVT Prophylaxis: SCDs/TEDs. GI prophylaxis: Pepcid Discharge Planning awaiting final by Cardiology to Discharge home. Ace Hernandez MD Oct 01, 2016 11:17 GI prophylaxis: Pepcid Discharge Planning awaiting final by Cardiology to Discharge home. Ace Hernandez MD Oct 01, 2016 11:17
--- NOTE | 2016-10-01 12:03 | RADRPT ---
EXAM DATE/TIME: 10/01/2016 09:10 [facility] COMPARISON: No previous studies available for comparison. INDICATIONS : Cardiomyopathy and current smoker. Congestive heart failure. DOSE: 25.8 mCi Tc99m Myoview at stress. 8.3 mCi Tc99m Myoview at rest. 0.4 mg Lexiscan STRESS SYMPTOMS: None. EJECTION FRACTION: 17% MEDICAL HISTORY : Hypertension. SURGICAL HISTORY : Scrota cyst removed. ENCOUNTER: Initial ACUITY: 1 day PAIN SCALE: 2/10 LOCATION: Bilateral chest TECHNIQUE: The patient underwent pharmacologic stress with infusion of prescribed dose. Continuous ECG tracing was monitored during stress. Gated SPECT imaging was performed after stress and conventional SPECT i maging was performed at rest. The examination was performed on a SPECT/CT scanner, both attenuation and non-corrected datasets were reviewed. FINDINGS: DISTRIBUTION: The maximum perfused segment at stress is in the lateral wall. PERFUSION STUDY: The pattern of perfusion at stress shows dilation of the ventricular lumen. Fixed diminished perfusio n to the low inferior wall extending into the apex. There is a single image of approximately 20-30% r edistribution in the inferoseptal wall which is only seen on the short axis views and cannot be verónica borated on the horizontal or vertical long axis views. As such, I feel this is artifactual. GATED STUDY: Diffuse hypokinesis with a markedly diminished ejection fraction. CONCLUSION: 1. Scintigraphic findings suggesting a dilated cardiomyopathy with a low inferior wall infarct extend ing into the apex. 2. No reversibility to suggest ischemia. 3. Severe, global hypokinesis with a markedly reduced ejection fraction of 17%. RISK CATEGORY: High (>3% Annual Mortality Rate) Tao Peña MD on October 01, 2016 at 11:56 Board Certified Radiologist. This report was verified electronically.
--- NOTE | 2016-10-01 15:40 | PD.CARD.PN ---
Subjective Subjective Remarks No CP or SOB, feels better Objective Medications Current Medications Medications (Trade) Dose Ordered Sig/Yaneth Route Start Time Stop Time Status Last Admin (NS Flush) 2 ml UNSCH PRN IVF 09/29/16 14:15 (NS Flush) 2 ml UNSCH PRN IV FLUSH 09/29/16 17:15 (NS Flush) 2 ml BID IV FLUSH 09/29/16 21:00 10/01/16 08:51 (KCl) 20 meq BID PO 09/29/16 21:00 10/01/16 08:51 (Tylenol) 650 mg Q4H PRN PO 09/29/16 17:15 (Zofran Inj) 4 mg Q6H PRN IVP 09/29/16 17:15 (Restoril) 15 mg HS PRN PO 09/29/16 17:15 (Narcan Inj) 0.4 mg UNSCH PRN IV 09/29/16 17:15 (Vasotec Inj) 1.25 mg Q6H PRN IV PUSH 09/29/16 17:15 09/30/16 17:58 (Folate) 1 mg DAILY PO 09/30/16 09:00 10/05/16 08:59 10/01/16 08:50 (Vitamin B1) 100 mg DAILY PO 09/30/16 09:00 10/01/16 08:52 (Theragran M Tab) 1 tab DAILY PO 09/30/16 09:00 10/05/16 08:59 10/01/16 08:50 (Romazicon Inj) 0.2 mg Q1M PRN IV PUSH 09/29/16 18:45 (Ativan) 1 mg Q4H PRN PO 09/29/16 18:45 (Ativan Inj) 1 mg Q4H PRN IV PUSH 09/29/16 18:45 (Ativan) 2 mg Q2H PRN PO 09/29/16 18:45 (Ativan Inj) 2 mg Q2H PRN IV PUSH 09/29/16 18:45 (Ativan Inj) 2 mg Q1H PRN IV PUSH 09/29/16 18:45 (Ativan Inj) 2 mg Q15M PRN IV PUSH 09/29/16 18:45 (Lovenox Inj) 80 mg Q12H SQ 09/29/16 21:45 10/01/16 08:53 (Pepcid) 20 mg BID PO 09/30/16 09:00 10/01/16 08:51 (Cozaar) 25 mg DAILY PO 09/30/16 09:45 10/01/16 08:49 (Zoloft) 50 mg DAILY PO 10/01/16 09:00 10/01/16 08:51 (Desyrel) 100 mg HS PO 09/30/16 21:00 09/30/16 22:27 (Aspirin Chew) 81 mg DAILY CHEW 10/01/16 09:00 10/01/16 08:51 (Lasix Inj) 20 mg BID@09,18 IV PUSH 09/30/16 18:00 10/01/16 08:51 (Coreg) 6.25 mg Q12HR PO 09/30/16 21:00 10/01/16 08:49 Vital Signs / I&O Vital Signs Date Time Temp Pulse Resp B/P Pulse Ox O2 Delivery O2 Flow Rate FiO2 10/01/16 08:00 94 Nasal Cannula 2.00 10/01/16 08:00 97.9 93 20 112/78 97 10/01/16 07:56 96 Nasal Cannula 1.00 10/01/16 04:00 Nasal Cannula 2.00 10/01/16 04:00 98.0 97 20 126/90 96 10/01/16 00:00 Nasal Cannula 2.00 10/01/16 00:00 98.3 89 20 124/71 94 09/30/16 21:11 Room Air 09/30/16 20:08 93 09/30/16 20:08 98.1 95 19 130/80 95 09/30/16 17:30 Nasal Cannula 2.00 09/30/16 17:00 97.8 100 18 145/103 97 I/O 09/30/16 09/30/16 09/30/16 10/01/16 10/01/16 10/01/16 07:00 15:00 23:00 07:00 15:00 23:00 Intake Total 500 ml 240 ml Output Total 550 ml 340 ml 200 ml Balance -50 ml -100 ml -200 ml Intake Oral 500 ml 240 ml Output Urine Total 550 ml 340 ml 200 ml # Bowel Movements 1 0 Physical Exam GENERAL: In NAD SKIN: Warm and dry. HEAD: Normocephalic. EYES: No scleral icterus. No injection or drainage. NECK: Supple, trachea midline. No JVD or lymphadenopathy. CARDIOVASCULAR: Regular rate and rhythm without murmurs, gallops, or rubs. RESPIRATORY: Breath sounds equal bilaterally. No accessory muscle use. GASTROINTESTINAL: Abdomen soft, non-tender, nondistended. MUSCULOSKELETAL: No cyanosis, or edema. Laboratory Laboratory Tests Test 09/29/16 09/29/16 09/30/16 09/30/16 14:15 17:40 00:02 08:26 White Blood Count 10.1 TH/MM3 Red Blood Count 5.16 MIL/MM3 Hemoglobin 15.8 GM/DL Hematocrit 46.7 % Mean Corpuscular Volume 90.6 FL Mean Corpuscular Hemoglobin 30.6 PG Mean Corpuscular Hemoglobin 33.8 % Concent Red Cell Distribution Width 15.1 % Platelet Count 188 TH/MM3 Mean Platelet Volume 10.7 FL Neutrophils (%) (Auto) 59.4 % Lymphocytes (%) (Auto) 22.4 % Monocytes (%) (Auto) 5.2 % Eosinophils (%) (Auto) 11.9 % Basophils (%) (Auto) 1.1 % Neutrophils # (Auto) 6.0 TH/MM3 Lymphocytes # (Auto) 2.3 TH/MM3 Monocytes # (Auto) 0.5 TH/MM3 Eosinophils # (Auto) 1.2 TH/MM3 Basophils # (Auto) 0.1 TH/MM3 CBC Comment DIFF FINAL Differential Comment Total Bilirubin 1.3 MG/DL Aspartate Amino Transf 67 U/L (AST/SGOT) Alanine Aminotransferase 149 U/L (ALT/SGPT) Alkaline Phosphatase 89 U/L B-Type Natriuretic Peptide 865 PG/ML Total Protein 7.5 GM/DL Albumin 3.6 GM/DL Hemoglobin A1c 6.2 % Triglycerides Level 115 MG/DL Cholesterol Level 241 MG/DL LDL Cholesterol 177 MG/DL HDL Cholesterol 41.5 MG/DL Cholesterol/HDL Ratio 5.80 RATIO Hepatitis A IgM Antibody NEGATIVE Hepatitis B Surface Antigen NEGATIVE Hepatitis B Core IgM Antibody NEGATIVE Hepatitis C Antibody NEGATIVE Total Creatine Kinase 154 U/L Sodium Level 140 MEQ/L Potassium Level 4.1 MEQ/L Chloride Level 108 MEQ/L Carbon Dioxide Level 21.1 MEQ/L Anion Gap 11 MEQ/L Blood Urea Nitrogen 20 MG/DL Creatinine 1.31 MG/DL Estimat Glomerular Filtration 67 ML/MIN Rate Random Glucose 120 MG/DL Calcium Level 9.8 MG/DL Troponin I 0.65 NG/ML Test 09/30/16 10:00 Urine Opiates Screen NEG Urine Barbiturates Screen NEG Urine Amphetamines Screen NEG Urine Benzodiazepines Screen NEG Urine Cocaine Screen POS Urine Cannabinoids Screen NEG Imaging Last Impressions Myocardial Perfusion Scan Nuc Med 10/01/16 0000 Signed Impressions: Service Date/Time: Saturday, October 01, 2016 09:10 - CONCLUSION: 1. Scintigraphic findings suggesting a dilated cardiomyopathy with a low inferior wall infarct extending into the apex. 2. No reversibility to suggest ischemia. 3. Severe, global hypokinesis with a markedly reduced ejection fraction of 17%%. RISK CATEGORY: High (>3%% Annual Mortality Rate) Tao Peña MD Chest X-Ray 09/29/16 1409 Signed Impressions: Service Date/Time: Thursday, September 29, 2016 14:16 - CONCLUSION: 1. Cardiomegaly with trace positive fluid balance. Kwan Stone MD Assessment and Plan Problem List: (1) Acute CHF (congestive heart failure) (2) Nonischemic cardiomyopathy (3) Cocaine abuse (4) Essential hypertension, malignant Assessment and Plan Symptoms improving. Continue and titrate tx for CHF. Nuclear stress test c/w nonischemic CM. Increase activity. Counseled again to stop using cocaine. Alina Washington MD Oct 01, 2016 15:40
[2016-10-01] MEDS: traZODone HCL 100 MG TAB PO SCH (20:56)
[2016-10-02] VITALS: BP 101/70; PULSE 88; RESP 20; TEMP 98.4; O2SAT 95
[2016-10-02 04:00] VITALS: BP 108/81; PULSE 92; RESP 20; TEMP 98.4; O2SAT 95
[2016-10-02 08:00] VITALS: BP 114/76; PULSE 70; PULSE 83; RESP 16; TEMP 97.8; O2SAT 100
[2016-10-02] MEDS: CARVEDILOL 6.25 MG TAB PO SCH ×2 (08:30→20:50)
[2016-10-02] MEDS: ASPIRIN 81 MG CHEW TAB CHEW SCH (08:31)
[2016-10-02] MEDS: THIAMINE HCL 100 MG TAB PO SCH (08:31)
[2016-10-02] MEDS: MULTIVITAMINS/MINERALS THERAPEUTIC TAB PO SCH (08:31)
[2016-10-02] MEDS: FOLIC ACID 1 MG TAB PO SCH (08:31)
[2016-10-02] MEDS: POTASSIUM CHLORIDE 20 MEQ CONTROLLED RELEASE TAB PO SCH ×2 (08:31→20:50)
[2016-10-02] MEDS: LOSARTAN 25 MG TAB PO SCH (08:31)
[2016-10-02] MEDS: SERTRALINE HCL 50 MG TAB PO SCH (08:31)
[2016-10-02] MEDS: FAMOTIDINE 20 MG TAB PO SCH ×2 (08:31→20:50)
[2016-10-02] MEDS: FUROSEMIDE 20 MG/2 ML VIAL IV PUSH SCH ×2 (08:33→17:27)
[2016-10-02] MEDS: ENOXAPARIN SODIUM 80 MG/0.8 ML SYRINGE SQ SCH ×2 (09:39→20:50)
[2016-10-02 12:00] VITALS: BP 114/82; PULSE 80; RESP 16; TEMP 97.6; O2SAT 96
[2016-10-02 16:00] VITALS: BP 122/72; PULSE 84; RESP 16; TEMP 97.9; O2SAT 94
--- NOTE | 2016-10-02 16:10 | PD.CARD.PN ---
Subjective Subjective Remarks No CP or SOB, feels fine Objective Medications Current Medications Medications (Trade) Dose Ordered Sig/Yaneth Route Start Time Stop Time Status Last Admin (NS Flush) 2 ml UNSCH PRN IVF 09/29/16 14:15 (NS Flush) 2 ml UNSCH PRN IV FLUSH 09/29/16 17:15 (NS Flush) 2 ml BID IV FLUSH 09/29/16 21:00 10/01/16 20:56 (KCl) 20 meq BID PO 09/29/16 21:00 10/02/16 08:31 (Tylenol) 650 mg Q4H PRN PO 09/29/16 17:15 (Zofran Inj) 4 mg Q6H PRN IVP 09/29/16 17:15 (Restoril) 15 mg HS PRN PO 09/29/16 17:15 (Narcan Inj) 0.4 mg UNSCH PRN IV 09/29/16 17:15 (Vasotec Inj) 1.25 mg Q6H PRN IV PUSH 09/29/16 17:15 09/30/16 17:58 (Folate) 1 mg DAILY PO 09/30/16 09:00 10/05/16 08:59 10/02/16 08:31 (Vitamin B1) 100 mg DAILY PO 09/30/16 09:00 10/02/16 08:31 (Theragran M Tab) 1 tab DAILY PO 09/30/16 09:00 10/05/16 08:59 10/02/16 08:31 (Romazicon Inj) 0.2 mg Q1M PRN IV PUSH 09/29/16 18:45 (Ativan) 1 mg Q4H PRN PO 09/29/16 18:45 (Ativan Inj) 1 mg Q4H PRN IV PUSH 09/29/16 18:45 (Ativan) 2 mg Q2H PRN PO 09/29/16 18:45 (Ativan Inj) 2 mg Q2H PRN IV PUSH 09/29/16 18:45 (Ativan Inj) 2 mg Q1H PRN IV PUSH 09/29/16 18:45 (Ativan Inj) 2 mg Q15M PRN IV PUSH 09/29/16 18:45 (Lovenox Inj) 80 mg Q12H SQ 09/29/16 21:45 10/02/16 09:39 (Pepcid) 20 mg BID PO 09/30/16 09:00 10/02/16 08:31 (Cozaar) 25 mg DAILY PO 09/30/16 09:45 10/02/16 08:31 (Zoloft) 50 mg DAILY PO 10/01/16 09:00 10/02/16 08:31 (Desyrel) 100 mg HS PO 09/30/16 21:00 10/01/16 20:56 (Aspirin Chew) 81 mg DAILY CHEW 10/01/16 09:00 10/02/16 08:31 (Lasix Inj) 20 mg BID@09,18 IV PUSH 09/30/16 18:00 10/02/16 08:33 (Coreg) 12.5 mg Q12HR PO 10/01/16 21:00 10/02/16 08:30 Vital Signs / I&O Vital Signs Date Time Temp Pulse Resp B/P Pulse Ox O2 Delivery O2 Flow Rate FiO2 10/02/16 12:00 97.6 80 16 114/82 96 10/02/16 08:00 100 Room Air 10/02/16 08:00 83 10/02/16 08:00 97.8 70 16 114/76 100 10/02/16 04:00 98.4 92 20 108/81 95 10/02/16 00:00 98.4 88 20 101/70 95 10/01/16 20:05 Nasal Cannula 2.00 10/01/16 20:00 99 10/01/16 20:00 98.3 84 20 136/85 97 10/01/16 18:20 96 Nasal Cannula 1.00 I/O 10/01/16 10/01/16 10/01/16 10/02/16 10/02/16 10/02/16 07:00 15:00 23:00 07:00 15:00 23:00 Intake Total 480 ml 220 ml 220 ml Output Total 200 ml 400 ml 400 ml Balance -200 ml 480 ml -180 ml -180 ml Intake Oral 480 ml 220 ml 220 ml Output Urine Total 200 ml 400 ml 400 ml # Voids 3 # Bowel Movements 0 1 2 2 Physical Exam GENERAL: In NAD SKIN: Warm and dry. HEAD: Normocephalic. EYES: No scleral icterus. No injection or drainage. NECK: Supple, trachea midline. No JVD or lymphadenopathy. CARDIOVASCULAR: Regular rate and rhythm without murmurs, gallops, or rubs. RESPIRATORY: Breath sounds equal bilaterally. No accessory muscle use. GASTROINTESTINAL: Abdomen soft, non-tender, nondistended. MUSCULOSKELETAL: No cyanosis, or edema. Laboratory Laboratory Tests Test 09/29/16 09/29/16 09/30/16 09/30/16 14:15 17:40 00:02 08:26 White Blood Count 10.1 TH/MM3 Red Blood Count 5.16 MIL/MM3 Hemoglobin 15.8 GM/DL Hematocrit 46.7 % Mean Corpuscular Volume 90.6 FL Mean Corpuscular Hemoglobin 30.6 PG Mean Corpuscular Hemoglobin 33.8 % Concent Red Cell Distribution Width 15.1 % Platelet Count 188 TH/MM3 Mean Platelet Volume 10.7 FL Neutrophils (%) (Auto) 59.4 % Lymphocytes (%) (Auto) 22.4 % Monocytes (%) (Auto) 5.2 % Eosinophils (%) (Auto) 11.9 % Basophils (%) (Auto) 1.1 % Neutrophils # (Auto) 6.0 TH/MM3 Lymphocytes # (Auto) 2.3 TH/MM3 Monocytes # (Auto) 0.5 TH/MM3 Eosinophils # (Auto) 1.2 TH/MM3 Basophils # (Auto) 0.1 TH/MM3 CBC Comment DIFF FINAL Differential Comment Total Bilirubin 1.3 MG/DL Aspartate Amino Transf 67 U/L (AST/SGOT) Alanine Aminotransferase 149 U/L (ALT/SGPT) Alkaline Phosphatase 89 U/L B-Type Natriuretic Peptide 865 PG/ML Total Protein 7.5 GM/DL Albumin 3.6 GM/DL Hemoglobin A1c 6.2 % Triglycerides Level 115 MG/DL Cholesterol Level 241 MG/DL LDL Cholesterol 177 MG/DL HDL Cholesterol 41.5 MG/DL Cholesterol/HDL Ratio 5.80 RATIO Hepatitis A IgM Antibody NEGATIVE Hepatitis B Surface Antigen NEGATIVE Hepatitis B Core IgM Antibody NEGATIVE Hepatitis C Antibody NEGATIVE Total Creatine Kinase 154 U/L Sodium Level 140 MEQ/L Potassium Level 4.1 MEQ/L Chloride Level 108 MEQ/L Carbon Dioxide Level 21.1 MEQ/L Anion Gap 11 MEQ/L Blood Urea Nitrogen 20 MG/DL Creatinine 1.31 MG/DL Estimat Glomerular Filtration 67 ML/MIN Rate Random Glucose 120 MG/DL Calcium Level 9.8 MG/DL Troponin I 0.65 NG/ML Test 09/30/16 10:00 Urine Opiates Screen NEG Urine Barbiturates Screen NEG Urine Amphetamines Screen NEG Urine Benzodiazepines Screen NEG Urine Cocaine Screen POS Urine Cannabinoids Screen NEG Imaging Last Impressions Myocardial Perfusion Scan Nuc Med 10/01/16 0000 Signed Impressions: Service Date/Time: Saturday, October 01, 2016 09:10 - CONCLUSION: 1. Scintigraphic findings suggesting a dilated cardiomyopathy with a low inferior wall infarct extending into the apex. 2. No reversibility to suggest ischemia. 3. Severe, global hypokinesis with a markedly reduced ejection fraction of 17%%. RISK CATEGORY: High (>3%% Annual Mortality Rate) Tao Peña MD Chest X-Ray 09/29/16 1409 Signed Impressions: Service Date/Time: Thursday, September 29, 2016 14:16 - CONCLUSION: 1. Cardiomegaly with trace positive fluid balance. Kwan Stone MD Assessment and Plan Problem List: (1) Acute CHF (congestive heart failure) (2) Nonischemic cardiomyopathy (3) Cocaine abuse (4) Essential hypertension, malignant Assessment and Plan Symptoms improved. Continue and titrate tx for CHF. Nuclear stress test with no evidence of ischemia and severe LV dysfunction. Suspect alcoholic CM, possibly exacerbated by habitual cocaine use. Increase activity. Counseled again to stop using cocaine and drinking ETOH, the patient understands the situation. Alina Washington MD Oct 02, 2016 16:10
[2016-10-02] MEDS ORDERED: LOSARTAN 25 MG TAB PO ONE (16:15)
--- NOTE | 2016-10-02 17:41 | HHI.PR ---
Subjective Remarks This is a pleasant 61 y/o Male with Shortness of breath, new onset of CHF, dry cough, The patient reports that he uses cocaine and Lortab off the street for chronic shoulder and knee pain. He has [facility] for these symptoms in the past. He states that his PCP at the [facility] thinks that he is an addict. He verbalizes understanding that these substances specifically cocaine are adverse to his health, but he intends to keep using them because they control his pain. 10/01: Seen in his bedroom in the presence of his and Daughter stable, Cardiology following. 10/02: Stable in his bedroom No nausea, vomit or diarrhea, not yet cleared by Cardiology for discharge, recommended to continue management for CHF. Objective Vital Signs Date Time Temp Pulse Resp B/P Pulse Ox O2 Delivery O2 Flow Rate FiO2 10/02/16 12:00 97.6 80 16 114/82 96 10/02/16 08:00 100 Room Air 10/02/16 08:00 83 10/02/16 08:00 97.8 70 16 114/76 100 10/02/16 04:00 98.4 92 20 108/81 95 10/02/16 00:00 98.4 88 20 101/70 95 10/01/16 20:05 Nasal Cannula 2.00 10/01/16 20:00 99 10/01/16 20:00 98.3 84 20 136/85 97 10/01/16 18:20 96 Nasal Cannula 1.00 I/O 10/01/16 10/01/16 10/01/16 10/02/16 10/02/16 10/02/16 07:00 15:00 23:00 07:00 15:00 23:00 Intake Total 480 ml 220 ml 220 ml Output Total 200 ml 400 ml 400 ml Balance -200 ml 480 ml -180 ml -180 ml Intake Oral 480 ml 220 ml 220 ml Output Urine Total 200 ml 400 ml 400 ml # Voids 3 # Bowel Movements 0 1 2 2 Result Diagram: 09/29/16 1415 09/30/16 0826 Imaging Last Impressions Myocardial Perfusion Scan Nuc Med 10/01/16 0000 Signed Impressions: Service Date/Time: Saturday, October 01, 2016 09:10 - CONCLUSION: 1. Scintigraphic findings suggesting a dilated cardiomyopathy with a low inferior wall infarct extending into the apex. 2. No reversibility to suggest ischemia. 3. Severe, global hypokinesis with a markedly reduced ejection fraction of 17%%. RISK CATEGORY: High (>3%% Annual Mortality Rate) Tao Peña MD Chest X-Ray 09/29/16 1409 Signed Impressions: Service Date/Time: Thursday, September 29, 2016 14:16 - CONCLUSION: 1. Cardiomegaly with trace positive fluid balance. Kwan Stone MD Procedures Stress test. Other Results Laboratory Tests Test 09/29/16 09/29/16 09/30/16 09/30/16 14:15 17:40 00:02 08:26 White Blood Count 10.1 TH/MM3 Red Blood Count 5.16 MIL/MM3 Hemoglobin 15.8 GM/DL Hematocrit 46.7 % Mean Corpuscular Volume 90.6 FL Mean Corpuscular Hemoglobin 30.6 PG Mean Corpuscular Hemoglobin 33.8 % Concent Red Cell Distribution Width 15.1 % Platelet Count 188 TH/MM3 Mean Platelet Volume 10.7 FL Neutrophils (%) (Auto) 59.4 % Lymphocytes (%) (Auto) 22.4 % Monocytes (%) (Auto) 5.2 % Eosinophils (%) (Auto) 11.9 % Basophils (%) (Auto) 1.1 % Neutrophils # (Auto) 6.0 TH/MM3 Lymphocytes # (Auto) 2.3 TH/MM3 Monocytes # (Auto) 0.5 TH/MM3 Eosinophils # (Auto) 1.2 TH/MM3 Basophils # (Auto) 0.1 TH/MM3 CBC Comment DIFF FINAL Differential Comment Total Bilirubin 1.3 MG/DL Aspartate Amino Transf 67 U/L (AST/SGOT) Alanine Aminotransferase 149 U/L (ALT/SGPT) Alkaline Phosphatase 89 U/L B-Type Natriuretic Peptide 865 PG/ML Total Protein 7.5 GM/DL Albumin 3.6 GM/DL Hemoglobin A1c 6.2 % Triglycerides Level 115 MG/DL Cholesterol Level 241 MG/DL LDL Cholesterol 177 MG/DL HDL Cholesterol 41.5 MG/DL Cholesterol/HDL Ratio 5.80 RATIO Hepatitis A IgM Antibody NEGATIVE Hepatitis B Surface Antigen NEGATIVE Hepatitis B Core IgM Antibody NEGATIVE Hepatitis C Antibody NEGATIVE Total Creatine Kinase 154 U/L Sodium Level 140 MEQ/L Potassium Level 4.1 MEQ/L Chloride Level 108 MEQ/L Carbon Dioxide Level 21.1 MEQ/L Anion Gap 11 MEQ/L Blood Urea Nitrogen 20 MG/DL Creatinine 1.31 MG/DL Estimat Glomerular Filtration 67 ML/MIN Rate Random Glucose 120 MG/DL Calcium Level 9.8 MG/DL Troponin I 0.65 NG/ML Test 09/30/16 10:00 Urine Opiates Screen NEG Urine Barbiturates Screen NEG Urine Amphetamines Screen NEG Urine Benzodiazepines Screen NEG Urine Cocaine Screen POS Urine Cannabinoids Screen NEG Objective Remarks GENERAL: Well-developed well-nourished. In no acute distress. SKIN: Warm and dry. No lesions noted. HEENT: Normocephalic. Pupils equal and round. Mucous membranes pink and moist. CARDIOVASCULAR: Regular rate and rhythm. No murmur appreciated. RESPIRATORY: No accessory muscle use. Clear to auscultation. Breath sounds equal bilaterally. GASTROINTESTINAL: Abdomen soft, non-tender, nondistended. Bowel sounds x4. MUSCULOSKELETAL: No obvious deformities. No clubbing or cyanosis. Trace edema. NEUROLOGICAL: Awake and alert. No focal neurological deficits. Moves upper and lower extremities spontaneously. Normal speech. PSYCHIATRIC: Slightly anxious mood and affect; insight and judgment normal. Medications and IVs Current Medications Medications (Trade) Dose Ordered Sig/Yaneth Route Start Time Stop Time Status Last Admin (NS Flush) 2 ml UNSCH PRN IVF 09/29/16 14:15 (NS Flush) 2 ml UNSCH PRN IV FLUSH 09/29/16 17:15 (NS Flush) 2 ml BID IV FLUSH 09/29/16 21:00 10/01/16 20:56 (KCl) 20 meq BID PO 09/29/16 21:00 10/02/16 08:31 (Tylenol) 650 mg Q4H PRN PO 09/29/16 17:15 (Zofran Inj) 4 mg Q6H PRN IVP 09/29/16 17:15 (Restoril) 15 mg HS PRN PO 09/29/16 17:15 (Narcan Inj) 0.4 mg UNSCH PRN IV 09/29/16 17:15 (Vasotec Inj) 1.25 mg Q6H PRN IV PUSH 09/29/16 17:15 09/30/16 17:58 (Folate) 1 mg DAILY PO 09/30/16 09:00 10/05/16 08:59 10/02/16 08:31 (Vitamin B1) 100 mg DAILY PO 09/30/16 09:00 10/02/16 08:31 (Theragran M Tab) 1 tab DAILY PO 09/30/16 09:00 10/05/16 08:59 10/02/16 08:31 (Romazicon Inj) 0.2 mg Q1M PRN IV PUSH 09/29/16 18:45 (Ativan) 1 mg Q4H PRN PO 09/29/16 18:45 (Ativan Inj) 1 mg Q4H PRN IV PUSH 09/29/16 18:45 (Ativan) 2 mg Q2H PRN PO 09/29/16 18:45 (Ativan Inj) 2 mg Q2H PRN IV PUSH 09/29/16 18:45 (Ativan Inj) 2 mg Q1H PRN IV PUSH 09/29/16 18:45 (Ativan Inj) 2 mg Q15M PRN IV PUSH 09/29/16 18:45 (Lovenox Inj) 80 mg Q12H SQ 09/29/16 21:45 10/02/16 09:39 (Pepcid) 20 mg BID PO 09/30/16 09:00 10/02/16 08:31 (Zoloft) 50 mg DAILY PO 10/01/16 09:00 10/02/16 08:31 (Desyrel) 100 mg HS PO 09/30/16 21:00 10/01/16 20:56 (Aspirin Chew) 81 mg DAILY CHEW 10/01/16 09:00 10/02/16 08:31 (Lasix Inj) 20 mg BID@,18 IV PUSH 09/30/16 18:00 10/02/16 17:27 (Coreg) 12.5 mg Q12HR PO 10/01/16 21:00 10/02/16 08:30 (Cozaar) 50 mg DAILY PO 10/03/16 09:00 A/P Assessment and Plan Mr. Hoover is a 61-year-old male patient with a known history of hypertension, tobacco abuse, cocaine use, and noncompliance who presented to the ED with complaints of worsening shortness of breath and productive cough x 1 month now. New onset of Congestive Heart failure BNP 865 on admission, CXR Cardiomegaly and Edema, on Diuretics, Echocardiogram, he has Cardiomyopathy, Hypertension, Statins held due to Transaminitis, Cardiology following recommended BB and ARBs, Echocardiogram EF 25-30% with global left ventricular dysfunction, Stress test Dilated Cardiomyopathy, low inferior wall infarct. EF 17%. Cardiology following. as per Cardiology Symptoms Improved, suspected alcoholic Cardiomyopathy, possibly exacerbated by Cocaine abuse. strongly recommended to stop Cocaine and Alcohol. Symptoms improved. Non compliance with medical health. Hypertension better control. - Patient noncompliant with prescribed outpatient hypertensives. - Started Coreg 3.125 mg PO Q12hr, caution with cocaine use. - Change lisinopril to losartan with chronic cough - Vasotec 1.25 mg IV q6h PRN with parameters. - Continuous cardiac telemetry. Monitor. Elevated troponins: No specific chest pain. Possibly secondary to CHF or cocaine use. R/O NSTEMI. EKG reviewed with sinus tachycardia, LVH, nonspecific T wave changes. -Trending cardiac enzymes -On full dose Lovenox for now -Aspirin -Check UDS Transaminitis: Likely chronic due to daily alcohol use Reviewed: Bilirubin 1.3, AST 67 and ALT 149. - Check Hepatitis profile Alcohol abuse: Chronic. strongly recommended to stop alcohol abuse. - CIWA protocol with thiamine replacement. - Monitor withdrawal symptoms. Chronic cough: Chest x-ray as above. Possibly chronic bronchitis. Cough no longer productive with diuresis, possible cardiac asthma. Afebrile with no leukocytosis. Likely chronic due to smoking. Received Solu-Medrol IV in the ED. - Duonebs PRN wheezing. - Supplemental O2 as needed - Change lisinopril to losartan. Depression: Chronic, stable. -Continue home sertraline and trazodone. Chronic knee and shoulder pain: Patient agrees that he needs long-term management for this and agrees that he does not need any acute care. -Recommend continued orthopedic follow-up as outpatient as well as pain management Polysubstance abuse: With alcohol, tobacco, and cocaine. -Counseled extensively on cessation, although patient expresses no desire to quit DVT Prophylaxis: SCDs/TEDs. GI prophylaxis: Pepcid Discharge Planning awaiting final by Cardiology to Discharge home. Ace Hernandez MD Oct 02, 2016 17:41
[2016-10-02 20:00] VITALS: BP 161/75; PULSE 84; PULSE 86; RESP 20; TEMP 97.8; O2SAT 95
[2016-10-02] MEDS: traZODone HCL 100 MG TAB PO SCH (20:50)
[2016-10-02] MEDS: SODIUM CHLORIDE 0.9% FLUSH 10 ML FLUSH IV FLUSH SCH (20:52)
[2016-10-03] VITALS (7 sets, daily range): BP systolic 106–128; BP diastolic 66–82; PULSE 75–105; RESP 18–22; TEMP 97.8–98.6; O2SAT 95–100
[2016-10-03 07:20] LABS: BICARBONATE 23.2 MEQ/L (21.0-32.0); POTASSIUM 3.8 MEQ/L (3.5-5.1)
[2016-10-03] MEDS: FUROSEMIDE 20 MG/2 ML VIAL IV PUSH SCH (09:12)
[2016-10-03] MEDS: ENOXAPARIN SODIUM 80 MG/0.8 ML SYRINGE SQ SCH ×2 (09:12→20:37)
[2016-10-03] MEDS: CARVEDILOL 6.25 MG TAB PO SCH ×2 (09:12→20:37)
[2016-10-03] MEDS: POTASSIUM CHLORIDE 20 MEQ CONTROLLED RELEASE TAB PO SCH ×2 (09:13→20:37)
[2016-10-03] MEDS: FOLIC ACID 1 MG TAB PO SCH (09:13)
[2016-10-03] MEDS: LOSARTAN 50 MG TAB PO SCH (09:13)
[2016-10-03] MEDS: SERTRALINE HCL 50 MG TAB PO SCH (09:14)
[2016-10-03] MEDS: ASPIRIN 81 MG CHEW TAB CHEW SCH (09:14)
[2016-10-03] MEDS: MULTIVITAMINS/MINERALS THERAPEUTIC TAB PO SCH (09:14)
[2016-10-03] MEDS: SODIUM CHLORIDE 0.9% FLUSH 10 ML FLUSH IV FLUSH SCH ×2 (09:14→20:37)
[2016-10-03] MEDS: THIAMINE HCL 100 MG TAB PO SCH (09:14)
[2016-10-03] MEDS: FAMOTIDINE 20 MG TAB PO SCH ×2 (09:14→20:37)
--- NOTE | 2016-10-03 11:09 | HHI.PR ---
Subjective Remarks This is a pleasant 61 y/o Male with Shortness of breath, new onset of CHF, dry cough, The patient reports that he uses cocaine and Lortab off the street for chronic shoulder and knee pain. He has seen orthopedics [facility] for these symptoms in the past. He states that his PCP at the [facility] thinks that he is an addict. He verbalizes understanding that these substances specifically cocaine are adverse to his health, but he intends to keep using them because they control his pain. 10/01: Seen in his bedroom in the presence of his and Daughter stable, Cardiology following. 10/02: Not yet cleared by Cardiology for discharge, recommended to continue management for CHF. 10/03: Stable in his bedroom, no nausea, vomit or diarrhea, walking in the aisle , again long conversation with the patient counseling about his behavior, no chest pain improving clinically. Objective Vital Signs Date Time Temp Pulse Resp B/P Pulse Ox O2 Delivery O2 Flow Rate FiO2 10/03/16 08:31 Room Air 10/03/16 08:00 98.1 75 22 127/82 95 10/03/16 04:00 97.8 89 20 123/76 100 10/03/16 00:00 97.8 77 20 106/66 97 10/03/16 00:00 Room Air 10/02/16 20:00 97.8 84 20 161/75 95 10/02/16 20:00 Room Air 10/02/16 20:00 86 10/02/16 16:00 97.9 84 16 122/72 94 10/02/16 12:00 97.6 80 16 114/82 96 I/O 10/02/16 10/02/16 10/02/16 10/03/16 10/03/16 10/03/16 07:00 15:00 23:00 07:00 15:00 23:00 Intake Total 220 ml 240 ml 960 ml 480 ml Output Total 400 ml 1300 ml 650 ml Balance -180 ml -1060 ml 960 ml 480 ml -650 ml Intake Oral 220 ml 240 ml 960 ml 480 ml Output Urine Total 400 ml 1300 ml 650 ml # Voids 1 3 # Bowel Movements 2 Result Diagram: 09/29/16 1415 10/03/16 0518 Imaging Last Impressions Myocardial Perfusion Scan Nuc Med 10/01/16 0000 Signed Impressions: Service Date/Time: Saturday, October 01, 2016 09:10 - CONCLUSION: 1. Scintigraphic findings suggesting a dilated cardiomyopathy with a low inferior wall infarct extending into the apex. 2. No reversibility to suggest ischemia. 3. Severe, global hypokinesis with a markedly reduced ejection fraction of 17%%. RISK CATEGORY: High (>3%% Annual Mortality Rate) Tao Peña MD Chest X-Ray 09/29/16 1409 Signed Impressions: Service Date/Time: Thursday, September 29, 2016 14:16 - CONCLUSION: 1. Cardiomegaly with trace positive fluid balance. Kwan Stone MD Procedures Stress test. Other Results Laboratory Tests Test 09/29/16 09/29/16 09/30/16 09/30/16 14:15 17:40 00:02 08:26 White Blood Count 10.1 TH/MM3 Red Blood Count 5.16 MIL/MM3 Hemoglobin 15.8 GM/DL Hematocrit 46.7 % Mean Corpuscular Volume 90.6 FL Mean Corpuscular Hemoglobin 30.6 PG Mean Corpuscular Hemoglobin 33.8 % Concent Red Cell Distribution Width 15.1 % Platelet Count 188 TH/MM3 Mean Platelet Volume 10.7 FL Neutrophils (%) (Auto) 59.4 % Lymphocytes (%) (Auto) 22.4 % Monocytes (%) (Auto) 5.2 % Eosinophils (%) (Auto) 11.9 % Basophils (%) (Auto) 1.1 % Neutrophils # (Auto) 6.0 TH/MM3 Lymphocytes # (Auto) 2.3 TH/MM3 Monocytes # (Auto) 0.5 TH/MM3 Eosinophils # (Auto) 1.2 TH/MM3 Basophils # (Auto) 0.1 TH/MM3 CBC Comment DIFF FINAL Differential Comment Total Bilirubin 1.3 MG/DL Aspartate Amino Transf 67 U/L (AST/SGOT) Alanine Aminotransferase 149 U/L (ALT/SGPT) Alkaline Phosphatase 89 U/L B-Type Natriuretic Peptide 865 PG/ML Total Protein 7.5 GM/DL Albumin 3.6 GM/DL Hemoglobin A1c 6.2 % Triglycerides Level 115 MG/DL Cholesterol Level 241 MG/DL LDL Cholesterol 177 MG/DL HDL Cholesterol 41.5 MG/DL Cholesterol/HDL Ratio 5.80 RATIO Hepatitis A IgM Antibody NEGATIVE Hepatitis B Surface Antigen NEGATIVE Hepatitis B Core IgM Antibody NEGATIVE Hepatitis C Antibody NEGATIVE Total Creatine Kinase 154 U/L Troponin I 0.65 NG/ML Test 09/30/16 10/03/16 10:00 05:18 Urine Opiates Screen NEG Urine Barbiturates Screen NEG Urine Amphetamines Screen NEG Urine Benzodiazepines Screen NEG Urine Cocaine Screen POS Urine Cannabinoids Screen NEG Sodium Level 137 MEQ/L Potassium Level 3.8 MEQ/L Chloride Level 102 MEQ/L Carbon Dioxide Level 23.2 MEQ/L Anion Gap 12 MEQ/L Blood Urea Nitrogen 21 MG/DL Creatinine 1.42 MG/DL Estimat Glomerular Filtration 61 ML/MIN Rate Random Glucose 143 MG/DL Calcium Level 9.4 MG/DL Objective Remarks GENERAL: Obesity. In no acute distress. SKIN: Warm and dry. No lesions noted. HEENT: Normocephalic. Pupils equal and round. Mucous membranes pink and moist. CARDIOVASCULAR: Regular rate and rhythm. No murmur appreciated. RESPIRATORY: No accessory muscle use. Clear to auscultation. Breath sounds equal bilaterally. GASTROINTESTINAL: Abdomen soft, non-tender, nondistended. Bowel sounds x4. MUSCULOSKELETAL: No obvious deformities. No clubbing or cyanosis. Trace edema. NEUROLOGICAL: Awake and alert. No focal neurological deficits. Moves upper and lower extremities spontaneously. Normal speech. PSYCHIATRIC: Slightly anxious mood and affect; insight and judgment normal. Medications and IVs Current Medications Medications (Trade) Dose Ordered Sig/Yaneth Route Start Time Stop Time Status Last Admin (NS Flush) 2 ml UNSCH PRN IVF 09/29/16 14:15 (NS Flush) 2 ml UNSCH PRN IV FLUSH 09/29/16 17:15 (NS Flush) 2 ml BID IV FLUSH 09/29/16 21:00 10/03/16 09:14 (KCl) 20 meq BID PO 09/29/16 21:00 10/03/16 09:13 (Tylenol) 650 mg Q4H PRN PO 09/29/16 17:15 (Zofran Inj) 4 mg Q6H PRN IVP 09/29/16 17:15 (Restoril) 15 mg HS PRN PO 09/29/16 17:15 (Narcan Inj) 0.4 mg UNSCH PRN IV 09/29/16 17:15 (Vasotec Inj) 1.25 mg Q6H PRN IV PUSH 09/29/16 17:15 09/30/16 17:58 (Folate) 1 mg DAILY PO 09/30/16 09:00 10/05/16 08:59 10/03/16 09:13 (Vitamin B1) 100 mg DAILY PO 09/30/16 09:00 10/03/16 09:14 (Theragran M Tab) 1 tab DAILY PO 09/30/16 09:00 10/05/16 08:59 10/03/16 09:14 (Romazicon Inj) 0.2 mg Q1M PRN IV PUSH 09/29/16 18:45 (Lovenox Inj) 80 mg Q12H SQ 09/29/16 21:45 10/03/16 09:12 (Pepcid) 20 mg BID PO 09/30/16 09:00 10/03/16 09:14 (Zoloft) 50 mg DAILY PO 10/01/16 09:00 10/03/16 09:14 (Desyrel) 100 mg HS PO 09/30/16 21:00 10/02/16 20:50 (Aspirin Chew) 81 mg DAILY CHEW 10/01/16 09:00 10/03/16 09:14 (Coreg) 12.5 mg Q12HR PO 10/01/16 21:00 10/03/16 09:12 (Cozaar) 50 mg DAILY PO 10/03/16 09:00 10/03/16 09:13 (Lasix) 20 mg BID@,18 PO 10/03/16 18:00 A/P Assessment and Plan Mr. Hoover is a 61-year-old male patient with a known history of hypertension, tobacco abuse, cocaine use, and noncompliance who presented to the ED with complaints of worsening shortness of breath and productive cough x 1 month now. New onset of Congestive Heart failure BNP 865 on admission, CXR Cardiomegaly and Edema, on Diuretics, Echocardiogram, he has Cardiomyopathy, Hypertension, Statins held due to Transaminitis, Cardiology following recommended BB and ARBs, Echocardiogram EF 25-30% with global left ventricular dysfunction, Stress test Dilated Cardiomyopathy, low inferior wall infarct. EF 17%. Cardiology following. as per Cardiology Symptoms Improved, suspected alcoholic Cardiomyopathy, possibly exacerbated by Cocaine abuse. strongly recommended to stop Cocaine and Alcohol. Symptoms improved. Non compliance with medical health. Hypertension better control. - Patient noncompliant with prescribed outpatient hypertensives. - Started Coreg 3.125 mg PO Q12hr, caution with cocaine use. - Change lisinopril to losartan with chronic cough - Vasotec 1.25 mg IV q6h PRN with parameters. - Continuous cardiac telemetry. Monitor. Elevated troponins: No specific chest pain. Possibly secondary to CHF or cocaine use. R/O NSTEMI. EKG reviewed with sinus tachycardia, LVH, nonspecific T wave changes. -Trending cardiac enzymes -On full dose Lovenox for now -Aspirin -Check UDS Transaminitis: patient has chronic alcohol abuse, Hepatitis Profile negative. Alcohol abuse: Chronic. strongly recommended to stop alcohol abuse. - CIWA protocol with thiamine replacement. - Monitor withdrawal symptoms. Chronic cough: Chest x-ray as above. Possibly chronic bronchitis. Cough no longer productive with diuresis, possible cardiac asthma. Afebrile with no leukocytosis. Likely chronic due to smoking. Received Solu-Medrol IV in the ED. - Duonebs PRN wheezing. - Supplemental O2 as needed - Change lisinopril to losartan. Depression: Chronic, stable. -Continue home sertraline and trazodone. Chronic knee and shoulder pain: Patient agrees that he needs long-term management for this and agrees that he does not need any acute care. -Recommend continued orthopedic follow-up as outpatient as well as pain management Polysubstance abuse: With alcohol, tobacco, and cocaine. -Counseled extensively on cessation, although patient expresses no desire to quit Acute Renal Injury probable pre renal secondary to IV diuretics discontinued and decreased dosages to 20 mg BID by mouth continue ARB by now will follow today or in am tomorrow depends of Cardiology clearance. DVT Prophylaxis: Lovenox full dose. GI prophylaxis: Pepcid Discharge Planning awaiting final by Cardiology to Discharge home. Ace Hernandez MD Oct 03, 2016 11:09
--- NOTE | 2016-10-03 15:42 | PD.CARD.PN ---
Subjective Subjective Remarks No CP or SOB, ambulating without difficulties, feels well Objective Medications Current Medications Medications (Trade) Dose Ordered Sig/Yaneth Route Start Time Stop Time Status Last Admin (NS Flush) 2 ml UNSCH PRN IVF 09/29/16 14:15 (NS Flush) 2 ml UNSCH PRN IV FLUSH 09/29/16 17:15 (NS Flush) 2 ml BID IV FLUSH 09/29/16 21:00 10/03/16 09:14 (KCl) 20 meq BID PO 09/29/16 21:00 10/03/16 09:13 (Tylenol) 650 mg Q4H PRN PO 09/29/16 17:15 (Zofran Inj) 4 mg Q6H PRN IVP 09/29/16 17:15 (Restoril) 15 mg HS PRN PO 09/29/16 17:15 (Narcan Inj) 0.4 mg UNSCH PRN IV 09/29/16 17:15 (Vasotec Inj) 1.25 mg Q6H PRN IV PUSH 09/29/16 17:15 09/30/16 17:58 (Folate) 1 mg DAILY PO 09/30/16 09:00 10/05/16 08:59 10/03/16 09:13 (Vitamin B1) 100 mg DAILY PO 09/30/16 09:00 10/03/16 09:14 (Theragran M Tab) 1 tab DAILY PO 09/30/16 09:00 10/05/16 08:59 10/03/16 09:14 (Romazicon Inj) 0.2 mg Q1M PRN IV PUSH 09/29/16 18:45 (Lovenox Inj) 80 mg Q12H SQ 09/29/16 21:45 10/03/16 09:12 (Pepcid) 20 mg BID PO 09/30/16 09:00 10/03/16 09:14 (Zoloft) 50 mg DAILY PO 10/01/16 09:00 10/03/16 09:14 (Desyrel) 100 mg HS PO 09/30/16 21:00 10/02/16 20:50 (Aspirin Chew) 81 mg DAILY CHEW 10/01/16 09:00 10/03/16 09:14 (Coreg) 12.5 mg Q12HR PO 10/01/16 21:00 10/03/16 09:12 (Cozaar) 50 mg DAILY PO 10/03/16 09:00 10/03/16 09:13 (Lasix) 20 mg BID@ PO 10/03/16 18:00 Vital Signs / I&O Vital Signs Date Time Temp Pulse Resp B/P Pulse Ox O2 Delivery O2 Flow Rate FiO2 10/03/16 12:00 98.3 85 22 106/70 95 10/03/16 08:31 Room Air 10/03/16 08:00 98.1 75 22 127/82 95 10/03/16 07:59 87 10/03/16 04:00 97.8 89 20 123/76 100 10/03/16 00:00 97.8 77 20 106/66 97 10/03/16 00:00 Room Air 10/02/16 20:00 97.8 84 20 161/75 95 10/02/16 20:00 Room Air 10/02/16 20:00 86 10/02/16 16:00 97.9 84 16 122/72 94 I/O 10/02/16 10/02/16 10/02/16 10/03/16 10/03/16 10/03/16 07:00 15:00 23:00 07:00 15:00 23:00 Intake Total 220 ml 240 ml 960 ml 480 ml Output Total 400 ml 1300 ml 650 ml Balance -180 ml -1060 ml 960 ml 480 ml -650 ml Intake Oral 220 ml 240 ml 960 ml 480 ml Output Urine Total 400 ml 1300 ml 650 ml # Voids 1 3 # Bowel Movements 2 Physical Exam GENERAL: In NAD SKIN: Warm and dry. HEAD: Normocephalic. EYES: No scleral icterus. No injection or drainage. NECK: Supple, trachea midline. No JVD or lymphadenopathy. CARDIOVASCULAR: Regular rate and rhythm without murmurs, gallops, or rubs. RESPIRATORY: Breath sounds equal bilaterally. No accessory muscle use. GASTROINTESTINAL: Abdomen soft, non-tender, nondistended. MUSCULOSKELETAL: No cyanosis, or edema. Laboratory Laboratory Tests Test 10/03/16 05:18 Sodium Level 137 MEQ/L Potassium Level 3.8 MEQ/L Chloride Level 102 MEQ/L Carbon Dioxide Level 23.2 MEQ/L Anion Gap 12 MEQ/L Blood Urea Nitrogen 21 MG/DL Creatinine 1.42 MG/DL Estimat Glomerular Filtration 61 ML/MIN Rate Random Glucose 143 MG/DL Calcium Level 9.4 MG/DL Imaging Last Impressions Myocardial Perfusion Scan Nuc Med 10/01/16 0000 Signed Impressions: Service Date/Time: Saturday, October 01, 2016 09:10 - CONCLUSION: 1. Scintigraphic findings suggesting a dilated cardiomyopathy with a low inferior wall infarct extending into the apex. 2. No reversibility to suggest ischemia. 3. Severe, global hypokinesis with a markedly reduced ejection fraction of 17%%. RISK CATEGORY: High (>3%% Annual Mortality Rate) Tao Peña MD Chest X-Ray 09/29/16 1409 Signed Impressions: Service Date/Time: Thursday, September 29, 2016 14:16 - CONCLUSION: 1. Cardiomegaly with trace positive fluid balance. Kwan Stone MD Assessment and Plan Problem List: (1) Acute CHF (congestive heart failure) (2) Nonischemic cardiomyopathy (3) Cocaine abuse (4) Essential hypertension, malignant Assessment and Plan Symptoms now markedly improved. Continue tx for CHF. Nuclear stress test with no evidence of ischemia and severe LV dysfunction. Suspect alcoholic CM, possibly exacerbated by habitual cocaine use. Counseled again to stop using cocaine and drinking ETOH, the patient understands the situation and potential for LV fx improvement with lifestyle changes. Discussed with both pt and today. OK to discharge home. Alina Washington MD Oct 03, 2016 15:42
[2016-10-03] MEDS: FUROSEMIDE 20 MG TAB PO SCH (18:38)
[2016-10-03 19:12] LABS: BICARBONATE 26.2 MEQ/L (21.0-32.0); POTASSIUM 4.5 MEQ/L (3.5-5.1)
[2016-10-03] MEDS: traZODone HCL 100 MG TAB PO SCH (20:37)
[2016-10-04] VITALS: BP 128/70; PULSE 99; RESP 14; TEMP 97.6; O2SAT 98
[2016-10-04 04:00] VITALS: BP 150/88; PULSE 89; RESP 16; TEMP 98; O2SAT 94
[2016-10-04 08:00] VITALS: BP 128/89; PULSE 79; RESP 20; TEMP 97.7; O2SAT 98
[2016-10-04 08:13] LABS: BICARBONATE 28.1 MEQ/L (21.0-32.0); POTASSIUM 4.8 MEQ/L (3.5-5.1)
--- NOTE | 2016-10-04 08:58 | HHI.PR ---
Subjective Remarks This is a pleasant 61 y/o Male with Shortness of breath, new onset of CHF, dry cough, The patient reports that he uses cocaine and Lortab off the street for chronic shoulder and knee pain. He has seen orthopedics at the [facility] for these symptoms in the past. He states that his PCP at the [facility] thinks that he is an addict. He verbalizes understanding that these substances specifically cocaine are adverse to his health, but he intends to keep using them because they control his pain. 10/01: Seen in his bedroom in the presence of his and Daughter stable, Cardiology following. 10/02: Not yet cleared by Cardiology for discharge, recommended to continue management for CHF. 10/03: Stable in his bedroom, no nausea, vomit or diarrhea, walking in the aisle , again long conversation with the patient counseling about his behavior, no chest pain improving clinically. 10/04: Seen in his bedroom already recommended for discharge by account services specialist will continue to follow by [facility] and account services specialist as outpatient, will need to monitor Renal function and Potassium level Objective Vital Signs Date Time Temp Pulse Resp B/P Pulse Ox O2 Delivery O2 Flow Rate FiO2 10/04/16 04:00 98.0 89 16 150/88 94 10/04/16 04:00 Room Air 10/04/16 00:00 97.6 99 14 128/70 98 10/03/16 20:00 Room Air 10/03/16 20:00 98.5 105 18 128/77 97 10/03/16 20:00 81 10/03/16 16:00 98.6 90 22 120/79 99 10/03/16 12:00 98.3 85 22 106/70 95 I/O 10/03/16 10/03/16 10/03/16 10/04/16 10/04/16 10/04/16 07:00 15:00 23:00 07:00 15:00 23:00 Intake Total 480 ml 480 ml 240 ml 120 ml Output Total 1250 ml Balance 480 ml -770 ml 240 ml 120 ml Intake Oral 480 ml 480 ml 240 ml 120 ml Output Urine Total 1250 ml # Voids 3 2 2 # Bowel Movements 3 0 0 Result Diagram: 10/04/16 0725 Imaging Last Impressions Myocardial Perfusion Scan Nuc Med 10/01/16 0000 Signed Impressions: Service Date/Time: Saturday, October 01, 2016 09:10 - CONCLUSION: 1. Scintigraphic findings suggesting a dilated cardiomyopathy with a low inferior wall infarct extending into the apex. 2. No reversibility to suggest ischemia. 3. Severe, global hypokinesis with a markedly reduced ejection fraction of 17%%. RISK CATEGORY: High (>3%% Annual Mortality Rate) Tao Peña MD Chest X-Ray 09/29/16 1405 Signed Impressions: Service Date/Time: Thursday, September 29, 2016 14:16 - CONCLUSION: 1. Cardiomegaly with trace positive fluid balance. Kwan Stone MD Procedures Stress test. Other Results Laboratory Tests Test 09/29/16 09/29/16 09/30/16 09/30/16 14:15 17:40 00:02 08:26 Hemoglobin A1c 6.2 % Triglycerides Level 115 MG/DL Cholesterol Level 241 MG/DL LDL Cholesterol 177 MG/DL HDL Cholesterol 41.5 MG/DL Cholesterol/HDL Ratio 5.80 RATIO Hepatitis A IgM Antibody NEGATIVE Hepatitis B Surface Antigen NEGATIVE Hepatitis B Core IgM Antibody NEGATIVE Hepatitis C Antibody NEGATIVE Total Creatine Kinase 154 U/L Troponin I 0.65 NG/ML Test 09/30/16 10/04/16 10:00 07:25 Urine Opiates Screen NEG Urine Barbiturates Screen NEG Urine Amphetamines Screen NEG Urine Benzodiazepines Screen NEG Urine Cocaine Screen POS Urine Cannabinoids Screen NEG Sodium Level 141 MEQ/L Potassium Level 4.8 MEQ/L Chloride Level 107 MEQ/L Carbon Dioxide Level 28.1 MEQ/L Anion Gap 6 MEQ/L Blood Urea Nitrogen 21 MG/DL Creatinine 1.44 MG/DL Estimat Glomerular Filtration 60 ML/MIN Rate Random Glucose 91 MG/DL Calcium Level 9.6 MG/DL Objective Remarks GENERAL: Obesity. In no acute distress. SKIN: Warm and dry. No lesions noted. HEENT: Normocephalic. Pupils equal and round. Mucous membranes pink and moist. CARDIOVASCULAR: Regular rate and rhythm. No murmur appreciated. RESPIRATORY: No accessory muscle use. Clear to auscultation. Breath sounds equal bilaterally. GASTROINTESTINAL: Abdomen soft, non-tender, nondistended. Bowel sounds x4. MUSCULOSKELETAL: No obvious deformities. No clubbing or cyanosis. Trace edema. NEUROLOGICAL: Awake and alert. No focal neurological deficits. Moves upper and lower extremities spontaneously. Normal speech. PSYCHIATRIC: Slightly anxious mood and affect; insight and judgment normal. Medications and IVs Current Medications Medications (Trade) Dose Ordered Sig/Yaneth Route Start Time Stop Time Status Last Admin (NS Flush) 2 ml UNSCH PRN IVF 09/29/16 14:15 (NS Flush) 2 ml UNSCH PRN IV FLUSH 09/29/16 17:15 (NS Flush) 2 ml BID IV FLUSH 09/29/16 21:00 10/03/16 20:37 (KCl) 20 meq BID PO 09/29/16 21:00 10/03/16 20:37 (Tylenol) 650 mg Q4H PRN PO 09/29/16 17:15 (Zofran Inj) 4 mg Q6H PRN IVP 09/29/16 17:15 (Restoril) 15 mg HS PRN PO 09/29/16 17:15 (Narcan Inj) 0.4 mg UNSCH PRN IV 09/29/16 17:15 (Vasotec Inj) 1.25 mg Q6H PRN IV PUSH 09/29/16 17:15 09/30/16 17:58 (Folate) 1 mg DAILY PO 09/30/16 09:00 10/05/16 08:59 10/03/16 09:13 (Vitamin B1) 100 mg DAILY PO 09/30/16 09:00 10/03/16 09:14 (Theragran M Tab) 1 tab DAILY PO 09/30/16 09:00 10/05/16 08:59 10/03/16 09:14 (Romazicon Inj) 0.2 mg Q1M PRN IV PUSH 09/29/16 18:45 (Lovenox Inj) 80 mg Q12H SQ 09/29/16 21:45 10/03/16 20:37 (Pepcid) 20 mg BID PO 09/30/16 09:00 10/03/16 20:37 (Zoloft) 50 mg DAILY PO 10/01/16 09:00 10/03/16 09:14 (Desyrel) 100 mg HS PO 09/30/16 21:00 10/03/16 20:37 (Aspirin Chew) 81 mg DAILY CHEW 10/01/16 09:00 10/03/16 09:14 (Coreg) 12.5 mg Q12HR PO 10/01/16 21:00 10/03/16 20:37 (Cozaar) 50 mg DAILY PO 10/03/16 09:00 10/03/16 09:13 (Lasix) 20 mg BID@,18 PO 10/03/16 18:00 10/03/16 18:38 A/P Assessment and Plan Mr. Hoover is a 61-year-old male patient with a known history of hypertension, tobacco abuse, cocaine use, and noncompliance who presented to the ED with complaints of worsening shortness of breath and productive cough x 1 month now. New onset of Congestive Heart failure BNP 865 on admission, CXR Cardiomegaly and Edema, on Diuretics, Echocardiogram, he has Cardiomyopathy, Hypertension, Statins held due to Transaminitis, Cardiology following recommended BB and ARBs, Echocardiogram EF 25-30% with global left ventricular dysfunction, Stress test Dilated Cardiomyopathy, low inferior wall infarct. EF 17%. Cardiology following. as per Cardiology Symptoms Improved, suspected alcoholic Cardiomyopathy, possibly exacerbated by Cocaine abuse. strongly recommended to stop Cocaine and Alcohol. Symptoms improved. Non compliance with medical health. Hypertension better control. - Patient noncompliant with prescribed outpatient hypertensives. - Started Coreg 3.125 mg PO Q12hr, caution with cocaine use. - Change lisinopril to losartan with chronic cough - Vasotec 1.25 mg IV q6h PRN with parameters. - Better but will need to continue Monitoring by PCP and Cardiology for titration Elevated troponins: No specific chest pain. Possibly secondary to CHF or cocaine use. R/O NSTEMI. EKG reviewed with sinus tachycardia, LVH, nonspecific T wave changes. -No acute Coronary syndrome okay to Discontinue Lovenox and follow as outpatient. Transaminitis: patient has chronic alcohol abuse, Hepatitis Profile negative. Alcohol abuse: Chronic. strongly recommended to stop alcohol abuse. - CIWA protocol with thiamine replacement. - Monitor withdrawal symptoms. Chronic cough: Chest x-ray as above. Possibly chronic bronchitis. Cough no longer productive with diuresis, possible cardiac asthma. Afebrile with no leukocytosis. Likely chronic due to smoking. Received Solu-Medrol IV in the ED. - Duonebs PRN wheezing. - Supplemental O2 as needed - Change lisinopril to losartan. Depression: Chronic, stable. -Continue home sertraline and trazodone. Chronic knee and shoulder pain: Patient agrees that he needs long-term management for this and agrees that he does not need any acute care. -Recommend continued orthopedic follow-up as outpatient as well as pain management Polysubstance abuse: With alcohol, tobacco, and cocaine. -Counseled extensively on cessation, although patient expresses no desire to quit Acute Renal Injury probable pre renal secondary to IV diuretics discontinued and decreased dosages to 20 mg BID by mouth continue ARB, stable on new laboratory will need to follow with his PCP and Cardiology during the week. and titrate medicines. DVT Prophylaxis: Lovenox full dose. GI prophylaxis: Pepcid Discharge Planning Discharge home now Ace Hernandez MD Oct 04, 2016 08:58
[2016-10-04] MEDS: SODIUM CHLORIDE 0.9% FLUSH 10 ML FLUSH IV FLUSH SCH (09:00)
[2016-10-04] MEDS: CARVEDILOL 6.25 MG TAB PO SCH (09:00)
[2016-10-04] MEDS ORDERED: THERM PO (09:41)
[2016-10-04] MEDS ORDERED: ASPI81CH25 CHEW (09:41)
[2016-10-04] MEDS ORDERED: FURO20TA PO (09:41)
[2016-10-04] MEDS ORDERED: FOLI1TAB6 PO (09:41)
[2016-10-04] MEDS ORDERED: COZA50TA PO (09:41)
[2016-10-04] MEDS ORDERED: CARV6.25 PO (09:41)
[2016-10-04] MEDS ORDERED: POTA10TA2 PO (09:41)
[2016-10-04] MEDS: ENOXAPARIN SODIUM 80 MG/0.8 ML SYRINGE SQ SCH (09:45)
--- NOTE | 2016-10-04 09:51 | HHI.DS ---
Discharge Summary Admission Date Sep 30, 2016 at 09:36 Discharge Date: Oct 04, 2016 Admitting Diagnosis new onset CHF/COPD (1) New onset of congestive heart failure ICD Code: I50.9 Diagnosis: Principal (2) Essential hypertension, malignant ICD Code: I10 Diagnosis: Principal (3) Alcohol abuse ICD Code: F10.10 Diagnosis: Principal (4) Transaminitis ICD Code: R74.0 Diagnosis: Principal Procedures Stress test. Brief History - From Admission Written by Ebonie Pedraza, acting as scribe for Dr. Green on 09/29/16 at 17:32. Mr. Hoover is a 61-year-old male patient with a known history of hypertension, tobacco abuse, cocaine use, and noncompliance who presented to the ED with complaints of worsening shortness of breath and productive cough x 1 month now. Patient states that his shortness of breath has been worsening over the past week with inability to walk no more than 20 feet without becoming short of breath and having to sit down. Patient [facility] with little to no improvement with continued use. He states he was adjusting a fan blade at home this am, became significantly short of breath, dizzy, diaphoretic and developed nausea and one bout of yellow emesis. Denies any chest pain at that time but did recognize his heart racing. Denies any recent lower leg edema. Patient states that over the past few days he has been waking up several times per night with orthopnea. Supposedly patient stopped smoking 1 week ago with a 20 year smoking history. States he has been diagnosed with hypertension but has not been compliant with medications for over a year now due to expense. Does admit to daily cocaine use, with last use last night. Patient also admits to daily alcohol use, up to 1 pint or liquor or 6 pack of alcohol per day. Last drink was three days ago, states he has not felt like drinking due to dyspnea. Patient is seen by the [facility] in the outpatient setting. He states he has not been compliant with prescribed medication for over 1 year now due to expense. Denies any recent fever, chills, chest pain, abdominal pain, diarrhea, hematochezia or dysuria. CBC/BMP: 10/04/16 0725 Significant Findings Laboratory Tests Test 10/03/16 10/03/16 10/04/16 05:18 18:37 07:25 Blood Urea Nitrogen 21 MG/DL (7-18) 23 MG/DL (7-18) 21 MG/DL (7-18) Creatinine 1.42 MG/DL 1.44 MG/DL (0.60-1.30) (0.60-1.30) Estimat Glomerular Filtration 61 ML/MIN (>89) 68 ML/MIN (>89) 60 ML/MIN (>89) Rate Random Glucose 143 MG/DL (74-106) Imaging Last Impressions Myocardial Perfusion Scan Nuc Med 10/01/16 0000 Signed Impressions: Service Date/Time: Saturday, October 01, 2016 09:10 - CONCLUSION: 1. Scintigraphic findings suggesting a dilated cardiomyopathy with a low inferior wall infarct extending into the apex. 2. No reversibility to suggest ischemia. 3. Severe, global hypokinesis with a markedly reduced ejection fraction of 17%%. RISK CATEGORY: High (>3%% Annual Mortality Rate) Tao Peña MD Chest X-Ray 09/29/16 1409 Signed Impressions: Service Date/Time: Thursday, September 29, 2016 14:16 - CONCLUSION: 1. Cardiomegaly with trace positive fluid balance. Kwan Stone MD PE at Discharge GENERAL: Obesity. In no acute distress. SKIN: Warm and dry. No lesions noted. HEENT: Normocephalic. Pupils equal and round. Mucous membranes pink and moist. CARDIOVASCULAR: Regular rate and rhythm. No murmur appreciated. RESPIRATORY: No accessory muscle use. Clear to auscultation. Breath sounds equal bilaterally. GASTROINTESTINAL: Abdomen soft, non-tender, nondistended. Bowel sounds x4. MUSCULOSKELETAL: No obvious deformities. No clubbing or cyanosis. Trace edema. NEUROLOGICAL: Awake and alert. No focal neurological deficits. Moves upper and lower extremities spontaneously. Normal speech. PSYCHIATRIC: Slightly anxious mood and affect; insight and judgment normal. Hospital Course This is a pleasant 61 y/o Male with Shortness of breath, new onset of CHF, dry cough, The patient reports that he uses cocaine and Lortab off the street for chronic shoulder and knee pain. He has seen orthopedics at the [facility] for these symptoms in the past. He states that his PCP at the [facility] thinks that he is an addict. He verbalizes understanding that these substances specifically cocaine are adverse to his health, but he intends to keep using them because they control his pain. 10/01: Seen in his bedroom in the presence of his and Daughter stable, Cardiology following. 10/02: Not yet cleared by Cardiology for discharge, recommended to continue management for CHF. 10/03: Stable in his bedroom, no nausea, vomit or diarrhea, walking in the aisle , again long conversation with the patient counseling about his behavior, no chest pain improving clinically. 10/04: Seen in his bedroom already recommended for discharge by nuclear medicine specialist will continue to follow by [facility] and nuclear medicine specialist as outpatient, will need to monitor Renal function and Potassium level Assessment and Plan Mr. Hoover is a 61-year-old male patient with a known history of hypertension, tobacco abuse, cocaine use, and noncompliance who presented to the ED with complaints of worsening shortness of breath and productive cough x 1 month now. New onset of Congestive Heart failure BNP 865 on admission, CXR Cardiomegaly and Edema, on Diuretics, Echocardiogram, he has Cardiomyopathy, Hypertension, Statins held due to Transaminitis, Cardiology following recommended BB and ARBs, Echocardiogram EF 25-30% with global left ventricular dysfunction, Stress test Dilated Cardiomyopathy, low inferior wall infarct. EF 17%. Cardiology following. as per Cardiology Symptoms Improved, suspected alcoholic Cardiomyopathy, possibly exacerbated by Cocaine abuse. strongly recommended to stop Cocaine and Alcohol. Symptoms improved. Non compliance with medical health. Hypertension better control. - Patient noncompliant with prescribed outpatient hypertensives. - Started Coreg 3.125 mg PO Q12hr, caution with cocaine use. - Change lisinopril to losartan with chronic cough - Vasotec 1.25 mg IV q6h PRN with parameters. - Better but will need to continue Monitoring by PCP and Cardiology for titration Elevated troponins: No specific chest pain. Possibly secondary to CHF or cocaine use. R/O NSTEMI. EKG reviewed with sinus tachycardia, LVH, nonspecific T wave changes. -No acute Coronary syndrome okay to Discontinue Lovenox and follow as outpatient. Transaminitis: patient has chronic alcohol abuse, Hepatitis Profile negative. Alcohol abuse: Chronic. strongly recommended to stop alcohol abuse. - CIWA protocol with thiamine replacement. - Monitor withdrawal symptoms. Chronic cough: Chest x-ray as above. Possibly chronic bronchitis. Cough no longer productive with diuresis, possible cardiac asthma. Afebrile with no leukocytosis. Likely chronic due to smoking. Received Solu-Medrol IV in the ED. - Duonebs PRN wheezing. - Supplemental O2 as needed - Change lisinopril to losartan. Depression: Chronic, stable. -Continue home sertraline and trazodone. Chronic knee and shoulder pain: Patient agrees that he needs long-term management for this and agrees that he does not need any acute care. -Recommend continued orthopedic follow-up as outpatient as well as pain management Polysubstance abuse: With alcohol, tobacco, and cocaine. -Counseled extensively on cessation, although patient expresses no desire to quit Acute Renal Injury probable pre renal secondary to IV diuretics discontinued and decreased dosages to 20 mg BID by mouth continue ARB, stable on new laboratory will need to follow with his PCP and Cardiology during the week. and titrate medicines. DVT Prophylaxis: Lovenox full dose. GI prophylaxis: Pepcid Discharge Planning Discharge home now Pt Condition on Discharge: Good Discharge Disposition: Discharge Home Discharge Time: > 30 minutes Discharge Instructions DIET: Follow Instructions for: Heart Healthy Diet Activities you can perform: Regular-No Restrictions Ace Hernandez MD Oct 04, 2016 09:50
[2016-10-04] MEDS: FOLIC ACID 1 MG TAB PO SCH (10:08)
[2016-10-04] MEDS: POTASSIUM CHLORIDE 20 MEQ CONTROLLED RELEASE TAB PO SCH (10:08)
[2016-10-04] MEDS: FAMOTIDINE 20 MG TAB PO SCH (10:08)
[2016-10-04] MEDS: LOSARTAN 50 MG TAB PO SCH (10:08)
[2016-10-04] MEDS: SERTRALINE HCL 50 MG TAB PO SCH (10:08)
[2016-10-04] MEDS: ASPIRIN 81 MG CHEW TAB CHEW SCH (10:08)
[2016-10-04] MEDS: MULTIVITAMINS/MINERALS THERAPEUTIC TAB PO SCH (10:08)
[2016-10-04] MEDS: THIAMINE HCL 100 MG TAB PO SCH (10:09)
[2016-10-04] MEDS: FUROSEMIDE 20 MG TAB PO SCH (10:09)
== END 2016-10-04 10:28 | disposition home or self-care (01) | DRG 292 ==
LOC: NEPE 13:52 → NEDA 17:09 → NEPFCDU 20:50 → OBSVTOIN 09-30 09:36 → N04B 09-30 17:00
PROVIDERS: ADMIT Internal Medicine; ATTEND Internal Medicine
DX: I11.0 Hypertensive heart disease with heart failure (principal); N17.9 Acute kidney failure, unspecified; I42.0 Dilated cardiomyopathy; I50.21 Acute systolic (congestive) heart failure; J44.9 Chronic obstructive pulmonary disease, unspecified; R74.0 Nonspecific elevation of levels of transaminase and lactic acid dehydrogenase [LDH]; R00.0 Tachycardia, unspecified; L72.9 Follicular cyst of the skin and subcutaneous tissue, unspecified; I42.6 Alcoholic cardiomyopathy; E66.9 Obesity, unspecified; M25.519 Pain in unspecified shoulder; M25.569 Pain in unspecified knee; F10.10 Alcohol abuse, uncomplicated; F14.10 Cocaine abuse, uncomplicated; F17.200 Nicotine dependence, unspecified, uncomplicated; F32.9 Major depressive disorder, single episode, unspecified; Z68.31 Body mass index [BMI] 31.0-31.9, adult; Z88.1 Allergy status to other antibiotic agents; Z91.14 Patient's other noncompliance with medication regimen; Z91.19 Patient's noncompliance with other medical treatment and regimen
CPT/HCPCS: 71010; 78452; 80048; 80053; 80061; 80074; 80307; 82550; 83036; 83880; 84484; 85025; 93005; 93017; 93306; 94640; 94664; 96374; 96375; A9502; G0378; J1650; J1940; J2785; J2930

== ENCOUNTER 2017-01-23 08:27 | Emergency (ER) | payer OTHER ==
[~2017-01-23] VITALS: Ht 167.6 cm; Wt 89.0 kg
[~2017-01-23 08:27] MED LIST changes: +ASPI81CH25 CHEW; +CARV6.25 PO; +COZA50TA PO; +FOLI1TAB6 PO; +FURO20TA PO; +POTA10TA2 PO; -PRED20 PO; -ROBA750T3 PO; +SERT-132 PO; +THERM PO; +TRAZ50TA12 PO; -Z.0.NO CURRENT MEDS
[2017-01-23 08:35] VITALS: BP 141/87; PULSE 95; RESP 18; TEMP 98.2; O2SAT 96
[2017-01-23 08:41] VITALS: BP 141/87; PULSE 95; RESP 20; O2SAT 96
--- NOTE | 2017-01-23 08:54 | PD ---
HPI Chief Complaint: Pain: Acute or Chronic Time Seen by Provider: 08:50 Travel History International Travel<30 days: No Contact w/Intl Traveler<30days: No Traveled to known affect area: No History of Present Illness HPI 61-year-old male presents to the emergency department via EMS for evaluation of right knee pain. Patient has history of chronic right knee pain, but states has been much worse for the past 4 days. He reports difficulty flexing and walking due to the pain in his knee. He states he has not followed up with an orthopedist in several years. The patient with history of CHF, hypertension, alcohol abuse. I reviewed the chart before seeing the patient. He was admitted in October 04, 2016 for new onset CHF. However, during his visit, is also complaining of chronic shoulder and knee pain. He apparently has history of cocaine abuse as well. He admits to me that he smoked marijuana, smoked cocaine, took a Lortab and a Percocet off the street last night for his pain. He states that he has to do this because his physicians will not prescribe these drugs to him. Patient denies any history of IV drug use. No fevers or chills. PFSH Past Medical History Arthritis: Yes (TRAUMATIC ARTHRITIS) Asthma: No Blood Disorders: No Anxiety: Yes Depression: Yes Heart Rhythm Problems: No Cancer: No Cardiovascular Problems: Yes (CHF / HYPERTENSION) Chemotherapy: No Chest Pain: No Congestive Heart Failure: Yes COPD: No Diabetes: No Diminished Hearing: No Endocrine: No Gastrointestinal Disorders: Yes (DIVERTICULIITIS ) Genitourinary: No Hypertension: Yes Immune Disorder: No Musculoskeletal: Yes (R KNEE INJURY 1972) Neurologic: No Psychiatric: Yes (PTSD) Reproductive: No Respiratory: No Radiation Therapy: No Sleep Apnea: No Thyroid Disease: No Influenza Vaccination: No Past Surgical History Genitourinary Surgery: Yes (SCROTAL CYST REMOVED) Other Surgery: Yes (SCROTAL SX REMOVED 1989) Social History Alcohol Use: Yes (MODERATE (NOT EVERYDAY) DRINKER) Tobacco Use: Yes (3-4 CIGS/DAY) Substance Use: Yes (CURRENT COCAINE USE, LORTAB (FROM STREET)) Allergies-Medications (Allergen,Severity, Reaction): Coded Allergies: cephalexin (Unverified Allergy, Severe, ITCHING, 01/23/17) ibuprofen (Unverified Allergy, Severe, VOMITING, 01/23/17) Reported Meds & Prescriptions Reported Meds & Active Scripts Active Percocet (Oxycodone-Acetaminophen) 5-325 mg Tab 1 Tab PO Q6H PRN Potassium Chloride ER (Potassium Chloride) 10 Meq Tab 10 Meq PO DAILY Thera M Plus (Multivitamins/Minerals Therapeutic) 1 Tab 1 Tab PO DAILY Cozaar (Losartan Potassium) 50 Mg Tab 50 Mg PO DAILY Furosemide 20 Mg Tab 20 Mg PO BID@09,18 Coreg (Carvedilol) 6.25 Mg Tab 12.5 Mg PO Q12HR Aspirin Low Strength (Aspirin) 81 Mg Chew 81 Mg CHEW DAILY Reported Sertraline (Sertraline HCl) 50 Mg Tab 50 Mg PO DAILY Trazodone (Trazodone HCl) 50 Mg Tab 100 Mg PO HS Review of Systems Except as stated in HPI: all other systems reviewed are Neg Physical Exam Narrative GENERAL: Well-nourished, well-developed male patient, afebrile. SKIN: Focused skin assessment warm/dry. HEAD: Normocephalic. Atraumatic. EYES: No scleral icterus. No injection or drainage. NECK: Supple, trachea midline. No JVD or lymphadenopathy. CARDIOVASCULAR: Regular rate and rhythm without murmurs, gallops, or rubs. Right pedal pulse is 2+. RESPIRATORY: Breath sounds equal bilaterally. No accessory muscle use. Lungs sounds are clear to auscultation GASTROINTESTINAL: Abdomen soft, non-tender, nondistended. MUSCULOSKELETAL: No cyanosis, or edema. With very mild palpation of the right knee, patient attempts to grab my hand. He will not attempt to move the knee at all. He has full sensation distal right lower extremity. BACK: Nontender without obvious deformity. No CVA tenderness. Data Data Last Documented VS Vital Signs Date Time Temp Pulse Resp B/P (MAP) Pulse Ox O2 Delivery O2 Flow Rate FiO2 01/23/17 10:51 01/23/17 08:41 95 20 96 Room Air 01/23/17 08:35 98.2 Orders Orders Knee, Complete (4vws) (01/23/17 ) Morphine Inj (Morphine Inj) (01/23/17 10:15) ^ Knee Immobilizer (01/23/17 10:12) Crutches (01/23/17 10:12) MDM Medical Decision Making Medical Screen Exam Complete: Yes Emergency Medical Condition: Yes Medical Record Reviewed: Yes Differential Diagnosis Chronic knee pain versus fracture versus sprain versus septic joint Narrative Course 61-year-old male presents to the emergency department via EMS for right knee pain. Patient's history of chronic right knee pain, but states it is worse in the past 4 days. He does admit to cocaine use, marijuana use, by Lortab and Percocet off the street last night. No fevers or chills. On exam with mild palpation, he attempts to grab my hand away. X-ray of the right knee is ordered and pending. Patient states that he does not want me to evaluate him any further request a new provider. My attending physician, Dr. Ham, will resume care and disposition of patient. Scripts Oxycodone-Acetaminophen (Percocet) 5-325 mg Tab 1 TAB PO Q6H Y for PAIN, #15 TAB 0 Refills Prov: Von Ham MD 01/23/17 Andreea Chen Jan 23, 2017 08:54
--- NOTE | 2017-01-23 10:03 | RADRPT ---
EXAM DATE/TIME: 01/23/2017 09:47 [facility] COMPARISON: No previous studies available for comparison. INDICATIONS : Right knee pain. No known injury. MEDICAL HISTORY : None. SURGICAL HISTORY : Right knee. ENCOUNTER: Initial ACUITY: 4 - 6 days PAIN SCORE: 10/10 LOCATION: Right knee. FINDINGS: Multiple views of the right knee demonstrate moderate patellofemoral degenerative change with a small joint effusion. The osseous structures are otherwise intact with no evidence of fracture or dislocat ion. Soft tissues are grossly normal. CONCLUSION: Patellofemoral degenerative change and small joint effusion. No evidence of fracture. Joan Mcgraw MD on January 23, 2017 at 10:00 Board Certified Radiologist. This report was verified electronically.
[2017-01-23] MEDS ORDERED: MORPHINE SULFATE 8 MG/ML INJ IM ONE (10:15)
[2017-01-23] MEDS ORDERED: PERC5TAB12 PO (10:18)
--- NOTE | 2017-01-23 10:18 | PD ---
Data Data Last Documented VS Vital Signs Date Time Temp Pulse Resp B/P (MAP) Pulse Ox O2 Delivery O2 Flow Rate FiO2 01/23/17 08:41 95 20 141/87 (105) 96 Room Air 01/23/17 08:35 98.2 Orders Orders Knee, Complete (4vws) (01/23/17 ) Morphine Inj (Morphine Inj) (01/23/17 10:15) MDM Supervised Visit with [facility]: Yes Narrative Course I, Dr. Ham, have reviewed the advance practice practitioner's documentation and am in agreement, met with the patient face to face, made the diagnosis, and the medical decision making was done by me. See her note for further details. Briefly this is a 61-year-old male who presents for evaluation of 4 days of worsening right knee pain. The patient denies recent trauma. He states that while serving in the [employer] he injured the ligaments in his knee. He reinjured the knee several years later and had an arthroscopic procedure, however he does not know what was performed. He states that the pain is severe, constant, worse with movement and palpation, slightly improved with rest. No fevers. He admits to using cocaine, marijuana, Lortab, and Percocet which she took for the pain, however the pain has been worsening. He adamantly denies IV drug use. Initial vital signs show heart rate 95, blood pressure 141/87, pulse ox 96% on room air, oral temp of 98.2F. On exam the patient has moderate diffuse edema to the right knee with moderate diffuse tenderness. There is limited range of motion secondary to pain, however I'm able to passively flex the knee to about 45. There is no warmth or erythema. No calf pain, swelling, or tenderness. Right knee x-ray: CONCLUSION: Patellofemoral degenerative change and small joint effusion. No evidence of fracture. Patient and the patient's significant other were made aware of all findings. I do not believe the patient's clinical symptoms are consistent with septic arthritis. He could have a gouty arthritis. Symptoms are more likely from his osteoarthritis and small joint effusion. At this point my plan is to provide the patient with pain medication, knee immobilizer, crutches, and have him follow-up as an outpatient with an orthopedic surgeon. He was informed on when to return to the emergency department. He verbalizes understanding and agreement with plan. Diagnosis Primary Impression: Right knee pain Qualified Codes: M25.561 - Pain in right knee Additional Impression: Osteoarthritis Qualified Codes: M17.11 - Unilateral primary osteoarthritis, right knee Referrals: Tj Escobar MD 3 days Orthopedist Primary Care Physician 3 days Additional Instruction: Follow-up with orthopedic surgeon Dr. Escobar or an orthopedist of your choice this week. Return to the emergency department for worsening symptoms or any other concerns as discussed. Scripts Oxycodone-Acetaminophen (Percocet) 5-325 mg Tab 1 TAB PO Q6H Y for PAIN, #15 TAB 0 Refills Prov: Von Ham MD 01/23/17 Disposition: 01 DISCHARGE HOME Condition: Stable Von Ham MD Jan 23, 2017 10:18
== END 2017-01-23 10:51 | disposition home or self-care (01) ==
LOC: NEPD 08:27
DX: M25.561 Pain in right knee (principal); M17.11 Unilateral primary osteoarthritis, right knee; M25.461 Effusion, right knee; I10 Essential (primary) hypertension; Z72.0 Tobacco use; Z87.39 Personal history of other diseases of the musculoskeletal system and connective tissue; Z86.59 Personal history of other mental and behavioral disorders; Z86.79 Personal history of other diseases of the circulatory system; Z87.19 Personal history of other diseases of the digestive system
CPT/HCPCS: 73564; 96372; 99283; E0113; J2270